=== PATIENT | female | born 1960 | race Caucasian/White ===

== ENCOUNTER 2023-03-02 17:46 | Outpatient (REF) | payer BC, SELFPAY ==
[2023-03-02 11:37] LABS: Iron 80 ug/dL (50-170); Total Iron Binding Capacity 351 ug/dL (250-450); Transferrin Sat 23 % (15-50)
[2023-03-02 11:39] LABS: Abs Immature Grans 0.04 10^3/uL (0.0-0.06); Absolute Basophil Count 0.08 10^3/uL (0.0-0.2); Absolute Eosinophil Count 0.26 10^3/uL (0.0-0.7); Absolute Monocyte Count 0.96 10^3/uL (0.1-0.8); Absolute Neutrophil Count 7.48 10^3/uL (1.2-6.7); Basophils % 0.7; Eosinophils % 2.3; HCT 42.4 % (36.0-46.0); HGB 13.8 g/dL (11.2-15.7); Immature Grans % 0.4; Lymphocytes % 20.7; MCH 29.1 pg (27.0-33.0); MCHC 32.5 % (32.0-36.0); MCV 90 fL (80-95); MPV 9.7 fL (8.0-11.0); Monocytes % 8.6; Neutrophils % 67.3; Platelet Count 355 10^3/uL (130-400); RBC 4.74 10^6/uL (3.93-5.22); RDW 11.9 % (11.7-14.6); RDW-SD 39.1 fL; WBC 11.12 10^3/uL (4.4-10.8)
[2023-03-02 12:04] LABS: Vitamin D 25 Total 58.7 ng/mL (30-100)
[2023-03-02 12:25] LABS: ALT 27 U/L (14-59); AST 16 U/L (15-37); Albumin 3.8 g/dL (3.4-5.0); Alkaline Phosphatase 64 U/L (46-116); Anion Gap 8.2 mmol/L (3-11); BUN 17 mg/dL (7-18); Bilirubin, Total 0.3 mg/dL (0.2-1.0); CO2 29.8 mmol/L (21.0-32.0); CREATININE 1.2 mg/dL (0.55-1.02); Calculated LDL 148 mg/dL (<100); Chloride 104 mmol/L (98-107); Cholesterol 253 mg/dL (<200); Estimated GFR 51.18 (mL/min/1.73m2); Ferritin 142 ng/mL (8-252); Glucose 98 mg/dL (74-106); HDL Cholesterol 79 mg/dL (40-60); Sodium 142 mmol/L (136-145); TSH (W/Ref FT4) 0.87 uIU/mL (0.36-3.74); Total Protein 7.2 g/dL (6.4-8.2); Triglyceride 131 mg/dL (<150); Vitamin B12 1466 pg/mL (193-986)
[2023-03-02 12:39] LABS: Hemoglobin A1C 5.7 % (<5.7)
[2023-03-04 09:29] LABS: CA 19-9 78 U/mL (<35)
== END 2023-03-02 17:47 | disposition home or self-care (01) ==
LOC: NCHCN 17:46
PROVIDERS: PCP Nurse Practitioner Family; Visit Provider Nurse Practitioner Family
DX: R97.8 Other abnormal tumor markers (principal); E03.9 Hypothyroidism, unspecified; R03.0 Elevated blood-pressure reading, without diagnosis of hypertension; E55.9 Vitamin D deficiency, unspecified; R73.03 Prediabetes; G30.9 Alzheimer's disease, unspecified; R71.8 Other abnormality of red blood cells; K21.9 Gastro-esophageal reflux disease without esophagitis
CPT/HCPCS: 80053; 80061; 82306; 82607; 82728; 83036; 83540; 83550; 83735; 84443; 85025; 86301

== ENCOUNTER 2023-03-05 18:43 | Outpatient (REF) | payer BC, SELFPAY ==
[2023-03-05 18:43] LABS: Bilirubin Negative (Negative); Blood Negative (Negative); Clarity Clear (Clear); Glucose Negative (Negative); Ketones Negative (Negative); Leukocyte Esterase Negative (Negative); Nitrite Negative (Negative); Specific Gravity >= 1.030 (1.005-1.025); Urobilinogen 0.2 mg/dL (Up to 0.2)
== END 2023-03-05 18:44 | disposition home or self-care (01) ==
LOC: NCHCN 18:43
PROVIDERS: PCP Nurse Practitioner Family; Visit Provider Nurse Practitioner Family
DX: R73.03 Prediabetes (principal); R71.8 Other abnormality of red blood cells; R82.998 Other abnormal findings in urine
CPT/HCPCS: 81003

== ENCOUNTER 2023-06-05 12:44 | Observation (INO) | payer BC, SELFPAY ==
[2023-06-05] VITALS (10 sets, daily range): BP systolic 118–134; BP diastolic 60–84; PULSE 72–100; RESP 20; TEMP 37; O2SAT 99–100
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
--- NOTE | 2023-06-05 13:15 | DI.CT_ITS ---
Exam(s) CT HEAD WO EXAM: CT HEAD WO CLINICAL HISTORY: Increased aggression. TECHNIQUE: Imaging Protocol: Axial computed tomography images with coronal and sagittal reformatted images were created and reviewed COMPARISON: No exams were available for comparison FINDINGS: There are no skull fractures. There is no fluid in the visualized paranasal sinuses. There is no evidence of intracranial hemorrhage, mass effect, or shift of midline structures. There are no extra-axial fluid collections. The ventricles are not enlarged or shifted and there is no blo od within the ventricular system nor within the basal cisterns. IMPRESSION: No acute intracranial findings on this noninfused CT scan of the brain. RADIATION DOSE DELIVERED: 595.72mGy.cm Total DLP DATA REPOSITORY: All CT scans at this facility are submitted to the National Radiology Data Registry (NRDR) Dose Index Registry (DIR) with the [employer] (ACR). RADIATION OPTIMIZATION: All CT scans at this facility use at least one of these dose optimization te chniques: automated exposure control; mA and/or kV adjustment per patient size (includes targeted exa ms where dose is matched to clinical indication); or iterative reconstruction.
[2023-06-05 13:38] LABS: Abs Immature Grans 0.02 10^3/uL (0.0-0.06); Absolute Basophil Count 0.07 10^3/uL (0.0-0.2); Absolute Eosinophil Count 0.27 10^3/uL (0.0-0.7); Absolute Lymphocyte Count 2.49 10^3/uL (1.2-3.4); Absolute Monocyte Count 0.79 10^3/uL (0.1-0.8); Absolute Neutrophil Count 4.67 10^3/uL (1.2-6.7); Basophils % 0.8; Eosinophils % 3.2; HCT 41.1 % (36.0-46.0); HGB 13.2 g/dL (11.2-15.7); Immature Grans % 0.2; MCH 28.2 pg (27.0-33.0); MCHC 32.1 % (32.0-36.0); MCV 88 fL (80-95); Monocytes % 9.5; Neutrophils % 56.3; Platelet Count 319 10^3/uL (130-400); RBC 4.68 10^6/uL (3.93-5.22); RDW 12.9 % (11.7-14.6); RDW-SD 41.3 fL; WBC 8.31 10^3/uL (4.4-10.8)
[2023-06-05 13:58] LABS: Salicylate < 2.8 mg/dL (<2.8)
[2023-06-05 14:01] LABS: Acetaminophen < 2 ug/mL (10-30)
[2023-06-05 14:05] LABS: Anion Gap 7.5 mmol/L (3-11); BUN 16 mg/dL (7-18); CO2 28.5 mmol/L (21.0-32.0); CREATININE 0.9 mg/dL (0.55-1.02); Calcium 10.5 mg/dL (8.5-10.1); Chloride 105 mmol/L (98-107); Estimated GFR 71.83 (mL/min/1.73m2); Glucose 104 mg/dL (74-106); Potassium 4.2 mmol/L (3.5-5.1); Sodium 141 mmol/L (136-145); TSH (W/Ref FT4) 0.01 uIU/mL (0.36-3.74)
[2023-06-05 14:09] LABS: ETHANOL BLOOD < 3.0 mg/dL (<10)
[2023-06-05 14:32] LABS: FREE T4 1.57 ng/dL (0.76-1.46)
[2023-06-05] MEDS: Normal Saline 500 ML IV (14:35)
[2023-06-05 18:08] LABS: Anion Gap 5.6 mmol/L (3-11); BUN 13 mg/dL (7-18); CO2 28.4 mmol/L (21.0-32.0); CREATININE 0.8 mg/dL (0.55-1.02); Calcium 9.3 mg/dL (8.5-10.1); Chloride 109 mmol/L (98-107); Estimated GFR 82.74 (mL/min/1.73m2); Glucose 101 mg/dL (74-106); Potassium 3.9 mmol/L (3.5-5.1); Sodium 143 mmol/L (136-145)
[2023-06-05 20:40] LABS: Bilirubin Negative (Negative); Blood Negative (Negative); Clarity Clear (Clear); Glucose Negative (Negative); Ketones Negative (Negative); Leukocyte Esterase Small (Negative); Nitrite Negative (Negative); Specific Gravity 1.015 (1.005-1.025); Urobilinogen 0.2 mg/dL (Up to 0.2); pH 7.5 (5-8)
[2023-06-05 20:52] LABS: *AMPHETAMINES SCREEN URINE Negative (Negative); *BARBITURATES SCREEN URINE Negative (Negative); *BENZODIAZEPINES SCREEN URINE Negative (Negative); Cannabinoids THC Negative (Negative); Cocaine Screen,Urine Negative (Negative); METHADONE URINE SCREEN Negative (Negative); OPIATES URINE SCREEN Negative (Negative); Tricyclic Antidepressants Negative (Negative)
[2023-06-05 20:56] LABS: Epithelial Cells Rare HPF (Negative); RBC 0-2 HPF (0-2)
[2023-06-05 20:57] LABS: Bacteria Negative HPF (Negative); C & S Indicated? No; Crystals Rare Calcium Oxalate HPF (Negative); Mucus Negative (Negative); Other Cells Rare Transitional (Negative)
--- NOTE | 2023-06-05 23:22 | W.PM.HP.N ---
Date of service: 06/05/23 Time of Service: 23:22 Assessment and Plan Assessment and plan (1) Alzheimer's dementia with behavioral disturbance: Status: Acute Assessment and plan: Behavior stable at the moment. Will continue donepezil and bupropion overnight. Continue supervision to ensure safety and ask case management to evaluate disposition options in the morning. See medical comorbidities below. (2) Hypercalcemia: Status: Acute Assessment and plan: Resolved after moderate IV fluids. Likely some element of volume depletion, holding vitamin D and ordered phosphorus and intact PTH. (3) Hypothyroidism: Assessment and plan: Labs suggest over replacement. Holding levothyroxine for now. (4) Pyuria: Status: Acute Assessment and plan: Minimal symptoms except for some increased frequency. Has received fosfomycin and will await cultures but hold further antibiotics. History of Present Illness History of Present Illness Chief Complaint: Abnormal behavior Narrative: This 63-year-old female with advanced dementia was sent in from her assisted living facility because of increasingly aggressive behavior. Noted that she had a neurology appointment 2 days ago when they refused to see her because she was uncooperative. She currently has no complaints except for slight increase in urinary frequency today. She denies fever, chills, dysuria, back pain. She reports reasonable oral intake and no nausea or vomiting, no change in her bowel habits. No unexplained weight changes. Reportedly her caregivers are unable to provide care either at home or at her assisted living facility and she is likely to need longer term placement. Review of Systems All systems reviewed & are unremarkable except as noted in HPI and below PFSH All Active Problems (Updated 06/05/23 @ 23:29 by Scott Galaviz MD) Pyuria (Acute) Alzheimer's dementia with behavioral disturbance (Acute) Hypercalcemia (Acute) Elevated serum free T4 level (Acute) Medical History Alzheimer's dementia CKD (chronic kidney disease), stage III Elevated blood pressure reading GERD (gastroesophageal reflux disease) History of depression History of prediabetes Hyperlipidemia Hypothyroidism Leukocytosis Microcytosis Other abnormal tumor markers Sleep apnea Urinary incontinence, mixed Vitamin D deficiency Surgical History H/O total hysterectomy H/O tubal ligation History of cholecystectomy Hx of removal of cyst Social History Smoking/Tobacco Use Status: Never Smoking risk assessment performed?: Yes Alcohol Intake: current Do you feel safe at home: Yes Do you feel safe in your relationship?: Yes Meds Allergies and Home Medications Allergies Allergy/AdvReac Type Severity Reaction Status Date / Time sulfadiazine Allergy Severe Verified 06/05/23 14:52 doxycycline Allergy Intermediate Verified 03/11/23 14:20 pregabalin [From Lyrica] Allergy Intermediate Verified 06/05/23 14:52 Home Medications Medication Instructions Recorded Confirmed Type bupropion HCl 300 mg 24 hr tablet, 300 mg PO QAM 03/11/23 06/05/23 History extended release (Wellbutrin XL) bupropion HCl 75 mg tablet 75 mg PO DAILY 03/11/23 06/05/23 History cholecalciferol (vitamin D3) 25 25 mcg PO DAILY 03/11/23 06/05/23 History mcg (1,000 unit) capsule coenzyme Q10 100 mg capsule (Co 100 mg PO DAILY 03/11/23 History Q-10) cyanocobalamin (vitamin B-12) 1,000 mcg PO DAILY 03/11/23 06/05/23 History 1,000 mcg capsule donepezil 5 mg tablet (Aricept) 5 mg PO QHS 03/11/23 06/05/23 History famotidine 20 mg tablet 20 mg PO DAILY 03/11/23 History levothyroxine 125 mcg tablet 125 mcg PO DAILY 03/11/23 06/05/23 History (Synthroid) acetaminophen 325 mg tablet 650 mg PO ONCE PRN 06/03/23 06/03/23 History (Tylenol) clozapine 50 mg tablet 50 mg PO QHS 06/03/23 06/03/23 History duloxetine 60 mg capsule,delayed 120 mg PO DAILY 06/03/23 06/03/23 History release magnesium 250 mg tablet 250 mg PO DAILY 06/03/23 06/03/23 History nicotine 21 mg/24 hr daily 1 patch transdermal DAILY 06/03/23 06/03/23 History transdermal patch omega 4-ulv-isl-fish oil 60 mg-90 1 cap PO DAILY 06/03/23 06/03/23 History mg-500 mg capsule (Fish Oil) simvastatin 20 mg tablet 20 mg PO DAILY 06/03/23 06/03/23 History tamsulosin 0.4 mg capsule 0.4 mg PO QHS 06/03/23 06/03/23 History umeclidinium 62.5 mcg/actuation 1 inh inhalation DAILY 06/03/23 06/03/23 History blister powder for inhalation (Incruse Ellipta) Exam Narrative Exam Narrative: General she appears comfortable and is in no acute distress HEENT pupils are equal round and reactive to light, no conjunctival pallor, no scleral icterus posterior pharynx clear with no erythema or exudate Neck supple, no lymphadenopathy or thyromegaly, carotid pulses normal and symmetric with no bruits Chest normal breath sounds with no crackles or wheezes Heart rhythm is regular, no gallop, no JVD, no murmur Abdomen soft, nontender, bowel sounds normal, no organomegaly or masses Skin no rash, normal turgor Joints no inflammatory changes noted Neurologic no tremor, hyperreflexic both upper extremities with no focal motor or sensory deficits Results Imaging Additional studies: Noted that her head CT has no acute pathology and she had mild hypercalcemia with normal renal function and trace pyuria. Labs 06/05/23 13:30 06/05/23 17:50 Labs: Laboratory Results - last 24 hr 06/05/23 06/05/23 06/05/23 13:30 13:30 13:30 WBC 8.31 RBC 4.68 Hgb 13.2 Hct 41.1 MCV 88 MCH 28.2 MCHC 32.1 RDW 12.9 Plt Count 319 MPV 10.0 Immature Gran % 0.2 Neutrophils % 56.3 Lymphocytes % 30.0 Monocytes % 9.5 Eosinophils % 3.2 Basophils % 0.8 Nucleated RBC % 0.0 Absolute Neutrophils 4.67 Absolute Lymphocytes 2.49 Absolute Monocytes 0.79 Absolute Eosinophils 0.27 Absolute Basophils 0.07 Sodium 141 Potassium 4.2 Chloride 105 Carbon Dioxide 28.5 Anion Gap 7.5 BUN 16 Creatinine 0.9 Est GFR (CKD-EPI 2020) 71.83 Glucose 104 Calcium 10.5 H TSH 0.01 L Free T4 1.57 H Urine Color Urine Clarity Urine pH Ur Specific [place] Urine Protein Urine Ketones Urine Blood Urine Nitrite Urine Bilirubin Urine Urobilinogen Ur Leukocyte Esterase Urine RBC Urine WBC Ur Epithelial Cells Urine Crystals Urine Bacteria Urine Mucus Urine Other Ur Culture Indicated? Urine Glucose Salicylates < 2.8 Urine Opiates Screen Urine Methadone Screen Acetaminophen < 2 Ur Barbiturates Screen Ur Tricyclics Screen Ur Amphetamines Screen U Benzodiazepines Scrn Urine Cocaine Screen Ur THC Screen Ethyl Alcohol < 3.0 06/05/23 06/05/23 06/05/23 17:50 20:33 20:33 WBC RBC Hgb Hct MCV MCH MCHC RDW Plt Count MPV Immature Gran % Neutrophils % Lymphocytes % Monocytes % Eosinophils % Basophils % Nucleated RBC % Absolute Neutrophils Absolute Lymphocytes Absolute Monocytes Absolute Eosinophils Absolute Basophils Sodium 143 Potassium 3.9 Chloride 109 H Carbon Dioxide 28.4 Anion Gap 5.6 BUN 13 Creatinine 0.8 Est GFR (CKD-EPI 2020) 82.74 Glucose 101 Calcium 9.3 TSH Free T4 Urine Color Yellow Urine Clarity Clear Urine pH 7.5 Ur Specific [place] 1.015 Urine Protein Negative Urine Ketones Negative Urine Blood Negative Urine Nitrite Negative Urine Bilirubin Negative Urine Urobilinogen 0.2 Ur Leukocyte Esterase Small H Urine RBC 0-2 Urine WBC 3-5 Ur Epithelial Cells Rare Urine Crystals Rare Calcium Oxalate Urine Bacteria Negative Urine Mucus Negative Urine Other Rare Transitional Ur Culture Indicated? No Urine Glucose Negative Salicylates Urine Opiates Screen Negative Urine Methadone Screen Negative Acetaminophen Ur Barbiturates Screen Negative Ur Tricyclics Screen Negative Ur Amphetamines Screen Negative U Benzodiazepines Scrn Negative Urine Cocaine Screen Negative Ur THC Screen Negative Ethyl Alcohol Last Vital Signs Temp 37 C 06/05/23 13:00 Pulse 72 06/05/23 15:01 Resp 20 06/05/23 13:00 BP 128/61 06/05/23 15:01 Pulse Ox 100 06/05/23 15:01 Time Spent Time spent with Patient: <40 minutes Time was spent: preparing to see the patient(eg.review tests), obtaining and/or reviewing separately otained hiistory, ordering medications,tests, procedures, referring, communicating with other health manager home healthcare, indepentently interpreting results, counseling the patient and care coordination
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
[2023-06-06] MEDS: Donepezil 5 MG TAB PO (01:26)
[2023-06-06 01:50] VITALS: BP 139/81; PULSE 82; RESP 16; TEMP 36.6; O2SAT 100
[2023-06-06] MEDS: Normal Saline 1,000 ML 75 ML IV (01:51)
[2023-06-06 07:25] LABS: Anion Gap 7.6 mmol/L (3-11); BUN 11 mg/dL (7-18); CO2 27.4 mmol/L (21.0-32.0); CREATININE 0.8 mg/dL (0.55-1.02); Calcium 9.5 mg/dL (8.5-10.1); Chloride 109 mmol/L (98-107); Estimated GFR 82.74 (mL/min/1.73m2); Glucose 90 mg/dL (74-106); Magnesium 1.9 mg/dL (1.8-2.4); PHOSPHORUS 3.2 mg/dL (2.6-4.7); Potassium 4.2 mmol/L (3.5-5.1); Sodium 144 mmol/L (136-145)
--- NOTE | 2023-06-06 08:43 | INITIAL_ITS ---
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 CURRENT FUNCTIONAL STATUS:: Pleasant in interaction, oriented to self. ADVANCE DIRECTIVES:: Willian, son as [employer] Has patient been provided with info about the portal/API?: No Did the patient sign up for the portal?: No INSURANCE COVERAGE / FINANCIAL ISSUES:: BC/BS out of state. Conor reports LTM was applied for and denied as Aida's monthly income covered her previous expenses at the [facility]. PRIMARY CARE PHYSICIAN:: Wanda Orosco POTENTIAL DISCHARGE NEEDS:: LTM, Placement PATIENT/FAMILY EDUCATION NEEDS:: Insurance limitations, self pay status, swing bed status, review of community based supports ANTICIPATED BARRIERS TO DISCHARGE:: Safe disposition; [place] has refused Aida's return home. TRANSPORTATION:: To be determined by disposition. PLAN:: Aida will remain at [facility] until LTM and placement can be coordinated. CM continues to follow. PFSH All Active Problems (Updated 06/17/23 @ 14:39 by Edel Gan MD) Anxiety (Chronic) Dementia with behavioral disturbance (Acute) Frontal lobe dementia (Acute) Discharge planning issues (Acute) UTI (urinary tract infection) (Acute) Palliative care encounter (Acute) Alzheimer's dementia with behavioral disturbance (Chronic) Elevated serum free T4 level (Acute) Medical History Alzheimer's dementia CKD (chronic kidney disease), stage III Elevated blood pressure reading GERD (gastroesophageal reflux disease) History of depression History of prediabetes Hyperlipidemia Hypothyroidism Leukocytosis Microcytosis Other abnormal tumor markers Sleep apnea Urinary incontinence, mixed Vitamin D deficiency Surgical History H/O total hysterectomy H/O tubal ligation History of cholecystectomy Hx of removal of cyst Social History Smoking/Tobacco Use Status: Never Smoking risk assessment performed?: Yes Alcohol Intake: current Housing: other Do you feel safe at home: Yes Do you feel safe in your relationship?: Yes
[2023-06-06] MEDS: buPROPion 75 MG TAB PO (11:00)
[2023-06-06] MEDS: buPROPion-XL 150 MG TABCR 300 MG PO (11:00)
[2023-06-06] MEDS: Simvastatin 20 MG TAB PO (11:01)
[2023-06-06] MEDS: Cyanocobalamin 500 MCG TAB 1000 MCG PO (11:01)
[2023-06-06 11:08] VITALS: BP 128/78; PULSE 69; RESP 16; TEMP 36.3; O2SAT 100
--- NOTE | 2023-06-06 12:01 | IN_ITS ---
PT Notes Visit Reasons: UTI, hypercalcemia Physical Therapy Inpatient Initial Evaluation Date: 06/06/23 Referring Doctor: Dale Edwards MD PT Orders: PT CONSULT: Urgent - Fall safety assessment Precautions: Fall. Standard. Dementia. Patient Profile/Admitting Diagnosis: Aida is 63 yo female that presented to the ER on 06/05/23, brought in by police for mental health evaluation. Reports of increasing agitation and combative behavior. She was residing at the [facility], unclear if still the case. Patient does have dementia. Found to have hypercalcemia, elevated serum free T4 level, and UTI. PMHX: See EMR Social History/Home Situation: Dementia/Alzheimer's recently living at [facility]. Ambulating without an AD it seems, but other baseline status not known. Equipment Owned/DME: Unknown Subjective: Cleared by nursing to see patient and patient is agreeable to PT. Nurse sitter present in room. Patient is sitting up in chair at time of consult and connected to IV. Objective: General Observation: Patient appears calm and alert. Poor ability to follow single step directions. Mental Status: Oriented to self Pain: None reported ROM: Right Upper Extremity: Within functional limits. Left Upper Extremity: Within functional limits. Right Lower Extremity: Within functional limits. Left Lower Extremity: Within functional limits. Strength: Right Upper Extremity: Grossly 4/5. Mercury Cracking Tester moderate. Left Upper Extremity: Grossly 4/5. Mercury Cracking Tester moderate. Right Lower Extremity: Hip flexors 4/5. Knee flexors 4/5. Knee extensors 5/5. Ankle dorsiflexors 4/5. Ankle plantarflexors 4/5. Left Lower Extremity: Hip flexors 4/5. Knee flexors 4/5. Knee extensors 5/5. Ankle dorsiflexors 4/5. Ankle plantarflexors 4/5. Sensation: Too confused for any appropriate assessment Bed Mobility/Transfers: Rolling: Not assessed Supine to sit: Not assessed Sit to supine: Not assessed Sit to stand: CGA Stand to sit: CGA Gait: Ambulated 85 feet (half with FWW, half without AD). CGA, needs correction of walker with use to keep in correct direction. Seems better without an assistive device, but supervision recommended. Stairs: Not assessed Balance: Static Sitting: Good Dynamic Sitting: Fair Static Standing: Fair Dynamic Standing: Poor Special Tests: Mobility Limitations Standardized Measure [facility]-PAC 6 clicks Basic Mobility Inpatient Short Form: Raw Score: 12 CMS Score: 69% Informed Consent/Education: Patient instructed in purpose of PT consult and plan of care. Assessment: Patient is calm and pleasant at time of consult sitting up in chair with sitter in room. She does have difficulty following single step directions and responding for strength testing. She ambulates better without an assistive device with reduced path deviation and improved speed. Patient has good basic mobility, but weakness in upper and lower extremity strength. Not safe to be independent secondary to Alzheimer's. Patient presents with clinical signs and symptoms consistent with current/admitting diagnoses that have resulted to mobility limitations, gait instability, generalized weakness, and impairment of motor control as demonstrated by the following impairment level findings: 1. Decreased strength to upper extremity major muscle groups 2. Decreased strength to lower extremity major muscle groups 3. Impaired sitting/standing balance 4. Impaired activity tolerance 5. Increased need for supervision for safe mobility Impairments are contributing to the following functional limitations: 1. Increased dependence with transfers 2. Inability to safely ambulate without supervision 3. Increase completion time for mobility ADL performance 4. Increased fall risk 5. Inability to negotiate steps alone safely Patient is assessed as a High complexity based on the following: History: 63 year old female with impairment level findings, functional limitations, and past medical history as indicated above Examination: Demonstrable impairment in strength, balance, and mobility level with underlying impairments and functional limitations as documented above Presentation: Evolving Decision Making: High complexity Goals: Goals x1 week 1. Supine-Sit: independent 2. Sit-Supine: independent 3. Sit-Stand: independent 4. Stand-Sit: independent 5. Bed-Chair: independent 6. Chair-Bed: independent 7. Independent gait on level surface with use of least restrictive device for at least 300 feet without report of pain nor dyspnea 8. Good static and dynamic standing balance/tolerance Plan of Care/Treatment Plan: 1-2x/day, 7 days/week x1 week. Plan of care has been reviewed with the DIRECTOR OF PHYSICAL SECURITY providing the service under Physical Therapy direction. Initiate Physical Therapy intervention for strengthening, bed mobility, transfers, gait, stairs, balance training, and use of assistive device. Discharge Plan DISCHARGE RECOMMENDATIONS: [facility] secondary to Alzheimer's and need for improved strengthening TREATMENT CODE/TIME: 11:35-11:57 (22 minutes), [id number] Thank you for the opportunity to participate in the care of this patient. Lacy Newell, PT, DPT, OCS [facility], [place]
--- NOTE | 2023-06-06 13:22 | DSE_ITS ---
Date of service: 06/06/23 Time of Service: 13:22 DS: Diagnosis Discharge Diagnosis (1) Alzheimer's dementia with behavioral disturbance: Status: Chronic Asessment and Plan: continue Wellbutrin, Aricept, Duloxetine; patient has had no behaviorial issues since admission last night. She will work w/ P.T. to try to improve her gait/balance and general strength but I anticipate that her cognitive needs will necessitate her to be placed in SNF once she has plateaued for P.T. Patient now entered into swing bed level I for P.T. Placement will be an issue as [facility] reportedly has refused to take her back. Her cognitive impairment makes it unsafe for her to live independently or even in assisted living. (2) Hypercalcemia: Status: Resolved Asessment and Plan: resolved after iv fluids. PTH is pending (3) Hypothyroidism: Asessment and Plan: low TSH and elevated FT4; will hold her synthroid for 3 days then reduce her dose to 100 mcg from 125 mcg and recheck her levels in 6 weeks. (4) Pyuria: Status: Acute Asessment and Plan: no symptoms of dysuria, fever or inability to void. Her UA was unremarkable. u rine culture is pending. she was treated w/ Fosfomycin and should not need further treatment. Discharge Plan Disposition Patient Disposition: Swing Bed(Skilled,SB1) Condition: Stable Discharge Details Reason For Visit: UTI, Hypercalcemia Admit Date/Time: 06/05/23 23:19 Admit Provider: Dale Edwards Attending Provider: Dale Edwards Primary Care Provider: Wanda Orosco Hospital Course Hospital Course: Patient was admitted through the ED from [facility] d/t worsening dementia causing generalized weakness, deconditioning and unsafe conditions for her to continue to live in assisted living d/t increased combativeness, and agitation. Patient was evaluated in the ED and given iv fluids for possible dehydration and was given Fosfomycin for possible UTI. However her UA only showed small amount of leukocyte esterase and only 3 to 5 WBC/HPF and no bacteria and negative for nitrites. She was no febrile and had no leukocytosis on her CBC. Labs were fairly unremarkable other than mildly elevated calcium of 10.5 which corrected to 9.5 after iv hydration and TSH of 0.01 w/ elevated FT4 of 1.57 (patient is on levothyroxine [address] scan of her head showed no acute intracranial process. Patient was admitted on observation status as [facility] refused to take her back d/t her behaviorial issues. Patient has had a sitter overnight and has had no observed behaviorial issues other than she tried to leave her room but was easily redirected and has been cooperative and calm. Patient was evaluated by physical therapy this morning and was found to have generalized weakness and gait instability and was recommended to have continued P.T. in a SNF. Patient will be discharged from acute observation status in the hospital to swing bed level I while she receives P.T. here at [facility]. Once she has regained adequate strength and balance, she may be dc to a SNF, hopefully one that is specialized to accomodate Alzheimer's patients as she needs further care to stabilize her cognitive functions. Home Meds and New Rx's Prescriptions: Continued acetaminophen [Tylenol] 325 mg tablet 650 mg PO ONCE PRN duloxetine 60 mg capsule,delayed release(DR/EC) 120 mg PO DAILY omega [id number] oil [Fish Oil] 60-90-500 mg capsule 1 cap PO DAILY Incruse Ellipta 62.5 mcg/actuation blister with device 1 inh inhalation DAILY magnesium 250 mg tablet 250 mg PO DAILY nicotine 21 mg/24 hr patch 24 hour 1 patch transdermal DAILY simvastatin 20 mg tablet 20 mg PO DAILY clozapine 50 mg tablet 50 mg PO QHS tamsulosin 0.4 mg capsule 0.4 mg PO QHS famotidine 20 mg tablet 20 mg PO DAILY donepezil [Aricept] 5 mg tablet 5 mg PO QHS bupropion HCl 75 mg tablet 75 mg PO DAILY bupropion HCl [Wellbutrin XL] 300 mg tablet extended release 24 hr 300 mg PO QAM coenzyme Q10 [Co Q-10] 100 mg capsule 100 mg PO DAILY cyanocobalamin (vitamin B-12) 1,000 mcg capsule 1,000 mcg PO DAILY cholecalciferol (vitamin D3) 25 mcg (1,000 unit) capsule 25 mcg PO DAILY Held levothyroxine [Synthroid] 125 mcg tablet 125 mcg PO DAILY Hold Instructions: Resume on 06/08/23. reduce dose to 100 mcg daily thereafter Discharge Instructions Activity:: Activity as Tolerated Equipment/Supplies:: No Equipment Needed Diet:: Normal Diet Discharge Orders Discharge Orders: Discharge Order (Routine); Ordered 06/06/23 Ordered By: Dale Edwards DS: Summary Time Spent with Patient providing and/or coordinating discharge services: Greater than 30 minutes Status at Discharge Functional status at discharge: uses cane/walker Overall status at discharge: patient is not back to baseline Mental Status: other (demented) Speech and Movement: speech and movement normal Mood: other (demented) Affect: normal affect Exam Narrative Exam Narrative: Aida is sitting up in her chair she just came back from having a shower. She is alert she is oriented only to person not to circumstance time or place. HEENT is unremarkable. Teeth are in good repair. Oropharynx noninjected no exudate. Neck supple nontender. No JVD normal carotid pulses Lungs are clear to auscultation Heart is regular rate and rhythm without appreciable murmur rub or gallop Abdomen soft nondistended nontender normal bowel sounds Extremities without peripheral cyanosis or edema. Neuro she has no facial asymmetry no dysarthric speech cognition she is aware of her surroundings she is unable to tell me where she is at nor is she able to tell me why she is here or how she got here. She does recognize that she has memory problems and gets frustrated when trying to explain herself. Pupils equally round reactive extraocular motions intact no focal cranial nerve deficits. No focal motor or sensory deficits although she does have generalized weakness but no paraparesis Psych Mental Status: other (demented) Speech and Movement: speech and movement normal Mood: other (demented) Affect: normal affect DS: Data Vitals/I&O Vitals and I&O: Vital Signs Temperature 36.3 C L 06/06/23 11:08 Temperature Source Tympanic 06/06/23 11:08 Pulse 69 06/06/23 11:08 Pulse Rhythm Regular 06/06/23 01:50 Respiratory Rate 16 06/06/23 11:08 Respiratory Effort Normal 06/06/23 01:50 Respiratory Depth Normal 06/06/23 01:50 Respiratory Pattern Normal 06/06/23 01:50 Blood Pressure 128/78 06/06/23 11:08 Blood Pressure Mean 79 06/05/23 15:01 Blood Pressure Position Sitting 06/05/23 13:00 Pulse Oximetry 100 06/06/23 11:08 Oxygen Delivery Method Room Air 06/06/23 11:08 Oxygen Flow Rate 0 06/06/23 11:08 Pain Level 0 06/06/23 01:50 Intake & Output 06/05/23 06/06/23 06/06/23 23:59 11:59 23:59 Intake Total 500 / 500 562.5 / 562.5 Output Total 100 / 100 Balance 500 / 500 -100 / 462.5 562.5 / 462.5 Weight 65.771 kg 48.3 kg Intake: IV 500 / 500 192.5 / 192.5 Oral 370 / 370 Output: Urine 100 / 100 Other: Urine Color Yellow Urine Appearance Clear Comment pT incontinent in brief at time of am care pT voided / sat back beyond hat Voiding Methods Diaper Toilet Incontinent Data Completed and Pending Labs on day of discharge: Labs from last 24 hours 06/06/23 06/05/23 06/05/23 06:22 20:33 20:33 WBC RBC Hgb Hct MCV MCH MCHC RDW Plt Count MPV Immature Gran % Neutrophils % Lymphocytes % Monocytes % Eosinophils % Basophils % Nucleated RBC % Absolute Neutrophils Absolute Lymphocytes Absolute Monocytes Absolute Eosinophils Absolute Basophils Sodium 144 Potassium 4.2 Chloride 109 H Carbon Dioxide 27.4 Anion Gap 7.6 BUN 11 Creatinine 0.8 Est GFR (CKD-EPI 2020) 82.74 Glucose 90 Calcium 9.5 Phosphorus 3.2 Magnesium 1.9 TSH Free T4 PTH Intact Urine Color Yellow Urine Clarity Clear Urine pH 7.5 Ur Specific [place] 1.015 Urine Protein Negative Urine Ketones Negative Urine Blood Negative Urine Nitrite Negative Urine Bilirubin Negative Urine Urobilinogen 0.2 Ur Leukocyte Esterase Small H Urine RBC 0-2 Urine WBC 3-5 Ur Epithelial Cells Rare Urine Crystals Rare Calcium Oxalate Urine Bacteria Negative Urine Mucus Negative Urine Other Rare Transitional Ur Culture Indicated? No Urine Glucose Negative Salicylates Urine Opiates Screen Negative Urine Methadone Screen Negative Acetaminophen Ur Barbiturates Screen Negative Ur Tricyclics Screen Negative Ur Amphetamines Screen Negative U Benzodiazepines Scrn Negative Urine Cocaine Screen Negative Ur THC Screen Negative Ethyl Alcohol 06/05/23 06/05/23 06/05/23 17:50 17:50 13:30 WBC 8.31 RBC 4.68 Hgb 13.2 Hct 41.1 MCV 88 MCH 28.2 MCHC 32.1 RDW 12.9 Plt Count 319 MPV 10.0 Immature Gran % 0.2 Neutrophils % 56.3 Lymphocytes % 30.0 Monocytes % 9.5 Eosinophils % 3.2 Basophils % 0.8 Nucleated RBC % 0.0 Absolute Neutrophils 4.67 Absolute Lymphocytes 2.49 Absolute Monocytes 0.79 Absolute Eosinophils 0.27 Absolute Basophils 0.07 Sodium 143 Potassium 3.9 Chloride 109 H Carbon Dioxide 28.4 Anion Gap 5.6 BUN 13 Creatinine 0.8 Est GFR (CKD-EPI 2020) 82.74 Glucose 101 Calcium 9.3 Phosphorus Magnesium TSH Free T4 PTH Intact Pending Urine Color Urine Clarity Urine pH Ur Specific [place] Urine Protein Urine Ketones Urine Blood Urine Nitrite Urine Bilirubin Urine Urobilinogen Ur Leukocyte Esterase Urine RBC Urine WBC Ur Epithelial Cells Urine Crystals Urine Bacteria Urine Mucus Urine Other Ur Culture Indicated? Urine Glucose Salicylates Urine Opiates Screen Urine Methadone Screen Acetaminophen Ur Barbiturates Screen Ur Tricyclics Screen Ur Amphetamines Screen U Benzodiazepines Scrn Urine Cocaine Screen Ur THC Screen Ethyl Alcohol 06/05/23 06/05/23 13:30 13:30 WBC RBC Hgb Hct MCV MCH MCHC RDW Plt Count MPV Immature Gran % Neutrophils % Lymphocytes % Monocytes % Eosinophils % Basophils % Nucleated RBC % Absolute Neutrophils Absolute Lymphocytes Absolute Monocytes Absolute Eosinophils Absolute Basophils Sodium 141 Potassium 4.2 Chloride 105 Carbon Dioxide 28.5 Anion Gap 7.5 BUN 16 Creatinine 0.9 Est GFR (CKD-EPI 2020) 71.83 Glucose 104 Calcium 10.5 H Phosphorus Magnesium TSH 0.01 L Free T4 1.57 H PTH Intact Urine Color Urine Clarity Urine pH Ur Specific [place] Urine Protein Urine Ketones Urine Blood Urine Nitrite Urine Bilirubin Urine Urobilinogen Ur Leukocyte Esterase Urine RBC Urine WBC Ur Epithelial Cells Urine Crystals Urine Bacteria Urine Mucus Urine Other Ur Culture Indicated? Urine Glucose Salicylates < 2.8 Urine Opiates Screen Urine Methadone Screen Acetaminophen < 2 Ur Barbiturates Screen Ur Tricyclics Screen Ur Amphetamines Screen U Benzodiazepines Scrn Urine Cocaine Screen Ur THC Screen Ethyl Alcohol < 3.0 PFSH All Active Problems (Updated 06/06/23 @ 13:25 by Dale Edwards MD) UTI (urinary tract infection) (Acute) Pyuria (Acute) Alzheimer's dementia with behavioral disturbance (Chronic) Elevated serum free T4 level (Acute) Medical History Alzheimer's dementia CKD (chronic kidney disease), stage III Elevated blood pressure reading GERD (gastroesophageal reflux disease) History of depression History of prediabetes Hyperlipidemia Hypothyroidism Leukocytosis Microcytosis Other abnormal tumor markers Sleep apnea Urinary incontinence, mixed Vitamin D deficiency Surgical History H/O total hysterectomy H/O tubal ligation History of cholecystectomy Hx of removal of cyst Social History Smoking/Tobacco Use Status: Never Smoking risk assessment performed?: Yes Alcohol Intake: current Housing: other Do you feel safe at home: Yes Do you feel safe in your relationship?: Yes Time Spent with Patient Time Spent with Patient: <45 minutes Time was spent: preparing to see the patient(eg.review tests), ordering medications,tests, procedures, referring, communicating with other health career coordinator (wrapper caser and supervisor photostat), indepentently interpreting results and care coordination
[2023-06-06 15:25] VITALS: BP 126/69; PULSE 72; RESP 16; TEMP 37.1; O2SAT 99
[2023-06-08 09:46] LABS: Parathyroid Hormone,Intact 56 pg/mL (19-88)
== END 2023-06-06 15:47 | disposition swing bed (61) ==
LOC: ER 23:57 → MS 06-06 01:22
PROVIDERS: Emergency Medicine; Hospitalist; Admitting Provider Internal Medicine; Emergency Provider Student in an Organized Health Care Education/Training Program; PCP Nurse Practitioner Family; Visit Provider Internal Medicine
DX: G30.9 Alzheimer's disease, unspecified (principal); F02.811 Dementia in other diseases classified elsewhere, unspecified severity, with agitation; E83.52 Hypercalcemia; E03.9 Hypothyroidism, unspecified; R82.81 Pyuria; N18.30 Chronic kidney disease, stage 3 unspecified; K21.9 Gastro-esophageal reflux disease without esophagitis; F32.A Depression, unspecified; R73.03 Prediabetes; G47.30 Sleep apnea, unspecified; N39.46 Mixed incontinence; Z79.899 Other long term (current) drug therapy; D72.829 Elevated white blood cell count, unspecified
CPT/HCPCS: 36415; 80048; 80307; 99285; 70450; 80320; 80329; 81003; 81015; 83735; 83970; 84100; 84439; 84443; 85025; 99222; 99239; G0378

== ENCOUNTER 2023-06-06 15:31 | Inpatient (IN) | payer MEDICARE, BC, MEDICAID, SELFPAY ==
--- NOTE | 2023-06-06 13:32 | W.PM.HP.N ---
Date of service: 06/06/23 Time of Service: 13:32 Assessment and Plan Assessment and plan (1) Alzheimer's dementia with behavioral disturbance: Status: Chronic Assessment and plan: continue her Aricept, duloxetine, and Wellbutrin. CM to assist family (son lives out of state) in finding a Alzheimers SNF. Patient does not need constant sitter but does require close monitoring by nursing as she tends to wander. Use of bed and chair alarms strongly advised. (2) Elevated serum free T4 level: Status: Acute Assessment and plan: probably over replacement of her levothyroxine. willl hold her 125 mcg dose for a few days then restart at lower level of 100 mcg; recheck levels in 6 weeks. (3) Hypothyroidism: Assessment and plan: as above (4) Hypercalcemia: Status: Resolved Assessment and plan: this was corrected w/ iv fluids last night. As she has hx of low vitamin D and is on replacement, I will check her vitamin D levels, she may be getting over replaced which will lead to hypercalcemia. PTH level is pending. (5) Vitamin D deficiency: Assessment and plan: will check levels. History of Present Illness History of Present Illness Chief Complaint: dementia Narrative: 63 yr old female w/ advanced dementia, GERD, HLD, hypothyroidism on replacement who resides at [facility] but was sent in to the ED last night for evaluation d/t increased agitation, combativeness. Patient reportedly was disturbing staff and other residents w/ her behavior. Workup in the ED revealed her to be mildly hypercalcemic (Calcium level of 10.5), rest of her electrolytes and BUN and creatinine were normal. UA w/ a few WBC but no bacteria. She was given iv fluids, a dose of fosfomycin for presumptive UTI and admitted to the hospital on observation status. She has had no behaviorial issues since she was admitted last . Unfortunately [facility] refuses to allow her to return. Physical therapy was consulted out of concern for general weakness, increased risk for falls. She was found to have no focal paresis, but has general weakness, cognitive deficits which impair her judgement necessitating frequent cueing and close supervision during walks. She was deemed to benefit from continued P.T. 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 Patient is now admitted to swing bed level I for continued therapy. Once she has reached a plateau of the limits of P.T. benefit then she will need SNF as she is deemed too demented to live wu. Review of Systems Unobtainable due to mental condition PFSH All Active Problems UTI (urinary tract infection) (Acute) Pyuria (Acute) Alzheimer's dementia with behavioral disturbance (Chronic) Elevated serum free T4 level (Acute) Medical History Alzheimer's dementia CKD (chronic kidney disease), stage III Elevated blood pressure reading GERD (gastroesophageal reflux disease) History of depression History of prediabetes Hyperlipidemia Hypothyroidism Leukocytosis Microcytosis Other abnormal tumor markers Sleep apnea Urinary incontinence, mixed Vitamin D deficiency Surgical History H/O total hysterectomy H/O tubal ligation History of cholecystectomy Hx of removal of cyst Social History Smoking/Tobacco Use Status: Never Smoking risk assessment performed?: Yes Alcohol Intake: current Housing: other Do you feel safe at home: Yes Do you feel safe in your relationship?: Yes Meds Allergies and Home Medications Allergies Allergy/AdvReac Type Severity Reaction Status Date / Time sulfadiazine Allergy Severe Verified 06/05/23 14:52 doxycycline Allergy Intermediate Verified 03/11/23 14:20 pregabalin [From Lyrica] Allergy Intermediate Verified 06/05/23 14:52 Home Medications Medication Instructions Recorded Confirmed Type bupropion HCl 300 mg 24 hr tablet, 300 mg PO QAM 03/11/23 06/05/23 History extended release (Wellbutrin XL) bupropion HCl 75 mg tablet 75 mg PO DAILY 03/11/23 06/05/23 History cholecalciferol (vitamin D3) 25 25 mcg PO DAILY 03/11/23 06/05/23 History mcg (1,000 unit) capsule coenzyme Q10 100 mg capsule (Co 100 mg PO DAILY 03/11/23 History Q-10) cyanocobalamin (vitamin B-12) 1,000 mcg PO DAILY 03/11/23 06/05/23 History 1,000 mcg capsule donepezil 5 mg tablet (Aricept) 5 mg PO QHS 03/11/23 06/06/23 History famotidine 20 mg tablet 20 mg PO DAILY 03/11/23 History levothyroxine 125 mcg tablet 125 mcg PO DAILY 03/11/23 06/05/23 History (Synthroid) acetaminophen 325 mg tablet 650 mg PO ONCE PRN 06/03/23 06/03/23 History (Tylenol) clozapine 50 mg tablet 50 mg PO QHS 06/03/23 06/03/23 History duloxetine 60 mg capsule,delayed 120 mg PO DAILY 06/03/23 06/03/23 History release magnesium 250 mg tablet 250 mg PO DAILY 06/03/23 06/03/23 History nicotine 21 mg/24 hr daily 1 patch transdermal DAILY 06/03/23 06/03/23 History transdermal patch omega 5-eay-zjo-fish oil 60 mg-90 1 cap PO DAILY 06/03/23 06/03/23 History mg-500 mg capsule (Fish Oil) simvastatin 20 mg tablet 20 mg PO DAILY 06/03/23 06/03/23 History tamsulosin 0.4 mg capsule 0.4 mg PO QHS 06/03/23 06/03/23 History umeclidinium 62.5 mcg/actuation 1 inh inhalation DAILY 06/03/23 06/03/23 History blister powder for inhalation (Incruse Ellipta) Exam Narrative Exam Narrative: Aida is sitting up in her chair.. She is alert she is oriented only to person not to circumstance time or place. HEENT is unremarkable. Teeth are in good repair. Oropharynx noninjected no exudate. Neck supple nontender. No JVD normal carotid pulses Lungs are clear to auscultation Heart is regular rate and rhythm without appreciable murmur rub or gallop Abdomen soft nondistended nontender normal bowel sounds Extremities without peripheral cyanosis or edema. Neuro she has no facial asymmetry no dysarthric speech cognition she is aware of her surroundings she is unable to tell me where she is at nor is she able to tell me why she is here or how she got here. She does recognize that she has memory problems and gets frustrated when trying to explain herself. Pupils equally round reactive extraocular motions intact no focal cranial nerve deficits. No focal motor or sensory deficits although she does have generalized weakness but no paraparesis Psych Mental Status: other (demented) Speech and Movement: speech and movement normal Mood: other (demented) Affect: normal affect Time Spent Time spent with Patient: 40-54 minutes Time was spent: preparing to see the patient(eg.review tests), ordering medications,tests, procedures, referring, communicating with other health field care advocate, indepentently interpreting results and care coordination
--- NOTE | 2023-06-06 15:11 | CM.SBPSYCH ---
Date of service: 06/06/23 Time of Service: 15:12 SB Psychosocial/Act. Assmt Hospital Admission Admission Date: 06/06/23 Admission From:: [facility] ED Diagnosis:: Dementia Swing Bed Admission Swing Bed Admit Date:: 06/06/23 Swing Bed Level of Care: Level 1/SNF Social Supports PREVIOUS FUNCTIONAL STATUS/SOCIAL/FAMILY SUPPORTS:: Resided at [facility] prior to admission; was placed four months ago by son Willian who had relocated to [place] at the time, has since returned to [place]. Aida was funding Level 3 cost with her monthly income; SSI and Annuity. Her son reports she worked for the [employer] in [place] for many years. Prior to Admission Living Arrangements/Environment Prior to Admission:: Resided at [facility] prior to admission; was placed four months ago by son Willian who had relocated to [place] at the time, has since returned to [place]. Aida was funding cost with her monthly income; SSI and Pension. 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 Mild weakness noted. Cognitive:: Requires support with eating, oriented to self only though Willian reports she continues to know him. Communication:: Soft spoken, kind. Behavior:: Pleasant, repetitive. Admission Data Reason for Swing Bed Admission:: Progress mobility, disposition support. 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 Asbestos Wire Finisher: Bita Cruz Date Assessment was completed:: 06/06/23
--- NOTE | 2023-06-06 15:12 | CMSCP_ITS ---
Date of service: 06/06/23 Time of Service: 15:12 Swingbed Plan of Care Activites/Discharge Plan of care: SWING BED PROGRAM ACTIVITIES/DISCHARGE PLAN OF CARE ACTIVITIES PLAN Date: 06/06/23 Identified Need: Life enrichment during extended hospitalization Intervention/Plan: Socialization, ambulation, engagement, offering of activity cart, music therapy, etc. Initials: EBONY DISCHARGE PLAN Date: 06/06/23 Identified Need: Progress mobility and disposition support Intervention/Plan: Aida will continue to work with PT daily until she has met defined goals. Referrals for SNF-transition to LTC. Telephonic Nurse Case Manager Medicaid application submitted. Initials: EBONY
[2023-06-06] MEDS: QUEtiapine 25 MG TAB PO (20:38)
[2023-06-06] MEDS: Donepezil 5 MG TAB PO (21:05)
[2023-06-06] MEDS: Tamsulosin 0.4 MG CAPCR PO (21:05)
[2023-06-07] MEDS: buPROPion 75 MG TAB PO (08:34)
[2023-06-07] MEDS: buPROPion-XL 150 MG TABCR 300 MG PO (08:34)
[2023-06-07] MEDS: Cyanocobalamin 500 MCG TAB 1000 MCG PO (08:35)
[2023-06-07] MEDS: Umeclidinium 7 CAP INHALER 1 CAP IH (08:35)
[2023-06-07 09:00] VITALS: BP 106/68; PULSE 70; RESP 18; TEMP 36.7; O2SAT 99
[2023-06-07 09:05] LABS: Vitamin D 25 Total 63.9 ng/mL (30-100)
[2023-06-07 09:10] LABS: Vitamin B12 736 pg/mL (193-986)
--- NOTE | 2023-06-07 09:58 | PT.INIE ---
PT Notes Visit Reasons: Dementia,Deconditioning,Gait Instability,Loss ADL Inpatient Physical Therapy Swingbed Evaluation Date: 06/07/2023 Referring Doctor: Dale Edwards MD PT Orders: PT CONSULT: Extended stay-weakness, Exacerbation chronic condition Precautions: Fall. Standard. Dementia. Patient Profile/Admitting Diagnosis:?Aida is 63 yo female that presented to the ER on 06/05/23, brought in by police for mental health evaluation. Reports of increasing agitation and combative behavior. She was residing at the [facility], unclear if still the case. Patient does have dementia. Found to have hypercalcemia, elevated serum free T4 level, and UTI. She has not had any additional behavioral events while admitted. Patient transitioned to Swingbed status on 06/06/23. PMHX: See EMR Social History/Home Situation: Dementia/Alzheimer's recently living at [facility], but not welcome back now. Ambulating without an AD it seems, but other baseline status not known. Equipment Owned/DME: Unknown Subjective:?Cleared by nursing to see patient and patient is agreeable to PT. Patient is resting in bed at time of consult. Objective:? General Observation: Patient appears calm and alert. Poor ability to follow single step directions. Mental Status: Oriented to self Pain: None reported ROM: Right Upper Extremity: Within functional limits. Left Upper Extremity: Within functional limits. Right Lower Extremity: Within functional limits. Left Lower Extremity: Within functional limits. Strength: Right Upper Extremity: Grossly 4/5. Lens Gauger moderate. Left Upper Extremity: Grossly 4/5. Lens Gauger moderate. Right Lower Extremity: Hip flexors 4/5. Knee flexors 4/5. Knee extensors 5/5. Ankle dorsiflexors 4/5. Ankle plantarflexors 4/5. Left Lower Extremity: Hip flexors 4/5. Knee flexors 4/5. Knee extensors 5/5. Ankle dorsiflexors 4/5. Ankle plantarflexors 4/5. Sensation:?Too confused for any appropriate assessment Bed Mobility/Transfers: Rolling: Supervision Supine to sit: Supervision Sit to supine: Supervision Sit to stand: Supervision Stand to sit: Supervision Gait:?Ambulated 300 feet without AD requiring supervision Stairs:?Not assessed Balance:? Static Sitting: Good Dynamic Sitting: Good Static Standing: Good Dynamic Standing: Fair Therapeutic Exercise (52433) for instruction in therapeutic exercises to develop strength and endurance, range of motion and flexibility: 15 minutes Seated biceps curl, red band x10 ea Seated shoulder scaption x 10 - cues to tap knees and lift in order to get full ROM Seated knee extension 3# x10 ea Seated march 3# x10 ea Standing heel raises x10 Standing hip abduction x10 ea *Needs increased verbal and tactile cueing in order to perform exercises tasks, is able to help count Special Tests: Mobility Limitations Standardized Measure [facility]-PAC 6 clicks Basic Mobility Inpatient Short Form: Raw Score: 18 ? CMS Score: 47% Informed Consent/Education:?Patient instructed in purpose of PT consult and plan of care. Assessment: Patient transitioned to Swing bed status yesterday and is no longer in need of a sitter. She remains calm and pleasant today. Participates as best she can, but does have difficulty following single step instructions still in regards to performing exercises. Good mobility and requires supervision with walking. Not safe to be independent secondary to Alzheimer's. She is left sitting in chair in care of nursing for daily hygiene. Patient presents with clinical signs and symptoms consistent with current/admitting diagnoses that have resulted to mobility limitations, gait instability, generalized weakness, and impairment of motor control as demonstrated by the following impairment level findings: 1. Decreased strength to upper extremity major muscle groups 2. Decreased strength to lower extremity major muscle groups 3. Impaired sitting/standing balance 4. Impaired activity tolerance 5. Increased need for supervision for safe mobility Impairments are contributing to the following functional limitations: 1. Increased dependence with transfers 2. Inability to safely ambulate without supervision 3. Increase completion time for mobility ADL performance 4. Increased fall risk 5. Inability to negotiate steps alone safely Patient is assessed as a Moderate complexity based on the following: History: 63 year old female with impairment level findings, functional limitations, and past medical history as indicated above Examination: Demonstrable impairment in strength, balance, and mobility level with underlying impairments and functional limitations as documented above Presentation: Evolving Decision Making: Moderate complexity Goals: Goals x1 week 1. Supine-Sit: independent 2. Sit-Supine: independent 3. Sit-Stand: independent 4. Stand-Sit: independent 5. Bed-Chair: independent 6. Chair-Bed: independent 7. Independent gait on level surface with use of least restrictive device for at least 300 feet without report of pain nor dyspnea 8. Good static and dynamic standing balance/tolerance Plan of Care/Treatment Plan: 1-2x/day, 7 days/week x1 week. Plan of care has been reviewed with the LOFTSMAN providing the service under Physical Therapy direction. Initiate Physical Therapy intervention for strengthening, bed mobility, transfers, gait, stairs, balance training, and use of assistive device. Discharge Plan DISCHARGE RECOMMENDATIONS: Custodial Care secondary to Alzheimer's and need for improved strengthening TREATMENT CODE/TIME: 10:02-10:25 (23 minutes), [id number], [id number] Thank you for the opportunity to participate in the care of this patient. Lacy Newell, PT, DPT, OCS [facility] [place], [place]
[2023-06-07 11:10] VITALS: BP 115/75; PULSE 72; RESP 14; TEMP 36.2; O2SAT 100
[2023-06-07] MEDS: Donepezil 5 MG TAB PO (20:01)
[2023-06-07] MEDS: Tamsulosin 0.4 MG CAPCR PO (20:01)
[2023-06-08 08:26] VITALS: BP 118/73; PULSE 71; TEMP 36.9; O2SAT 99
[2023-06-08] MEDS: Cyanocobalamin 500 MCG TAB 1000 MCG PO (09:13)
[2023-06-08] MEDS: buPROPion-XL 150 MG TABCR 300 MG PO (09:13)
[2023-06-08] MEDS: buPROPion 75 MG TAB PO (09:13)
[2023-06-08] MEDS: Umeclidinium 7 CAP INHALER 1 CAP IH (10:10)
--- NOTE | 2023-06-08 13:26 | PT.INTREAT ---
Date of service: 06/08/23 Time of Service: 10:44 PT Notes Visit Reasons: Dementia,Deconditioning,Gait Instability,Loss ADL Inpatient Physical Therapy Treatment Note [facility] Date: 06/08/23 PRECAUTIONS: Fall, standard, activity as tolerated. IV access RUE. SUBJECTIVE: Patient sitting up in recliner, agreeable to therapy. AFTERNOON: same. OBJECTIVE: PAIN: Morning c/o pain in right hip with ambulation, AFTERNOON None BED MOBILITY/TRANSFERS Sit-stand: CGA Stand-sit: CGA Bed-Chair: CGA Chair-bed: CGA GAIT Assistive Device: none Weight bearing: full Assist: CGA, SBA Distance: 500 feet AFTERNOON: 600 feet Deviation: Reduced step height, shuffling pattern, reduced stride length. Tends to drift to right side, does not bump obstacles, no LOB, no SOB. VITALS: monitored by nursing staff. THEREX: AFTERNOON: brisk extended walk until patient c/o fatigue, for cardiovascular strengthening. ASSESSMENT: Patient tolerates therapy well, however is confused, oriented only to self. AFTERNOON: patient reports her brother is squished over there and indicates the roof of the new mental health wing of the hospital. PLAN: Continue global strengthening per plan of care until patient achieves placement in a SNF vs LTC. TREATMENT CODE/TIME: 74041 Gait 8 minutes beginning at 10:44. AFTERNOON [id number] Ther Ex 12 minutes beginning at 14:52
--- NOTE | 2023-06-08 16:25 | PHA.REVIEW2 ---
Pharmacy Admission Review Admission Clinical Review Admission Pharmacy Review: (Updated 06/07/23 @ 00:11 by MEG MADDOX) Elevated serum free T4 level (Acute) sulfadiazine Allergy (Severe, Verified 06/05/23 14:52) doxycycline Allergy (Intermediate, Verified 03/11/23 14:20) pregabalin [From Lyrica] Allergy (Intermediate, Verified 06/05/23 14:52) Resuscitation Status DNR/DNI Height 5 ft 4 in Weight 48.3 kg Comments Comments/Follow Ups: Watch VS, labs and for med changes (possible renal dose adjustments). CM working on placement. Pharmacy Admission Review Renal Dosing Medications needing adjustments: Reviewed (Crcl ~43.9 mL/min. Recommended to consider a max dose of bupropion of 150 mg with her current renal function, will mention to provider.) Anticoagulation DVT Prophylaxis: N/A Therapeutic Anticoagulation: N/A Opiate Usage Evaluate Pain Scale/Pains Meds: N/A Relevant Labs Electrolytes, C-Reactive P, ESR: N/A DM Control DM Control: N/A Cardiac Review BP, HR, EF%: Reviewed (BP and HR have been within normal limits so far this admission) QTc Review QTc: N/A IV to PO Switch IV Medications: Reviewed Home Meds Home Med List reviewed: Reviewed Relevent Home Meds Not ordered & why?: cholecalciferol (on hold due to hypercalcemia/provider to check levels per H&P), levothyroxine (on hold per provider, provider to start a lower dose in a couple of days per H&P) Current Meds Current Medication Order Review: Reviewed Comments Comments/Follow Ups: Watch VS, labs and for med changes (possible renal dose adjustments). CM working on placement.
[2023-06-08] MEDS: Donepezil 5 MG TAB PO (21:01)
[2023-06-08] MEDS: Tamsulosin 0.4 MG CAPCR PO (21:01)
[2023-06-09] MEDS: Umeclidinium 7 CAP INHALER 1 CAP IH (08:33)
[2023-06-09] MEDS: Milk of Magnesia 30 ML CUP PO (08:59)
[2023-06-09] MEDS: buPROPion-XL 150 MG TABCR PO (08:59)
[2023-06-09] MEDS: Cyanocobalamin 500 MCG TAB 1000 MCG PO (08:59)
[2023-06-09 15:14] VITALS: BP 110/73; PULSE 79; TEMP 36; O2SAT 99
--- NOTE | 2023-06-09 16:45 | PT.INNT ---
Date of service: 06/09/23 Time of Service: 13:04 PT Notes Visit Reasons: Dementia,Deconditioning,Gait Instability,Loss ADL Patient perseverating on her brother who is visiting and brought Charlie - patient indicates empty chair, or out the window, unclear. Refuses therapy at 13:04, 16:35. Per conversation with supervising PT Keri Camacho, patient treatment frequency to be reduced to 3x/week as her ambulation, balance continue to be good.
[2023-06-09] MEDS: Donepezil 5 MG TAB PO (19:28)
[2023-06-09] MEDS: Tamsulosin 0.4 MG CAPCR PO (21:30)
[2023-06-10] MEDS: Cyanocobalamin 500 MCG TAB 1000 MCG PO (08:04)
[2023-06-10] MEDS: buPROPion-XL 150 MG TABCR PO (08:05)
[2023-06-10] MEDS: Umeclidinium 7 CAP INHALER 1 CAP IH (08:23)
[2023-06-10 09:04] VITALS: BP 123/80; PULSE 75; TEMP 36.3; O2SAT 100
[2023-06-10] MEDS: Polyethylene Glycol 3350 17 GM PACKET PO (13:18)
--- NOTE | 2023-06-10 13:55 | PT.INTREAT ---
Date of service: 06/10/23 Time of Service: 10:27 PT Notes Visit Reasons: Dementia,Deconditioning,Gait Instability,Loss ADL Inpatient Physical Therapy Treatment Note [facility] Date: 06/10/23 PRECAUTIONS: Fall, standard, activity as tolerated. MARIAMA alarm in place SUBJECTIVE: Patient sitting in recliner with footrest elevated, both legs over the side of the footrest as though patient is trying to stand without lowering footrest. Initially disagreeable to therapy, however when this therapist offers to help her get her sneakers on she becomes more agreeable. OBJECTIVE: PAIN: none reported. BED MOBILITY/TRANSFERS Sit-stand: SBA Stand-sit: SBA Bed-Chair: SBA Chair-bed: SBA GAIT Assistive Device: none Weight bearing: full Assist: SBA, supervision due to dementia Distance: 700 feet Deviation: Sneakers appear to alter patient's gait. No LOB, however patients gait meanders across the width of the hallway rather than maintaining a straight line. VITALS: monitored by nursing staff. ASSESSMENT: Patient tolerates therapy well, is resting comfortably in recliner at end of session. Reactivated MARIAMA alarm. PLAN: Continue global strengthening and balance training until patient obtains placement in a SNF. TREATMENT CODE/TIME: 22960 Gait 11 minutes beginning at 10:27
[2023-06-10] MEDS: Bisacodyl 10 MG SUPP PR (14:42)
--- NOTE | 2023-06-10 17:12 | PDOC.CMACT ---
Date of service: 06/10/23 Time of Service: 17:12 Care Management Activity Note Activity Note Text Activity Note Text: Aida has been working with PT, walking in the halls, working on global strengthening. She has been provided a coloring book and crayons for life enrichment. She is pleasant in interaction, talking with staff. She requires assistance to ambulate to the bathroom/chair/bed. Nursing reports she is impulsive, but polite and easily redirectable. CM continues to support life enrichment for Aida during her prolonged hospitalization.
--- NOTE | 2023-06-10 17:17 | CMPROGNOTE_ITS ---
Date of service: 06/10/23 Time of Service: 17:17 Care Management Progress Note Progress Note Text Progress Note Text: S/O: Aida has been working with PT, currently three times a week for global strengthening. CM spoke to her son, Conor, today, and provided an update. Per nursing, Aida is impulsive, but polite and redirectable. Aida does not have a qualifying three night hospitalization to qualify her for short term rehab. Her [facility] is pending. Per Conor, he mailed it certified, and it has not yet been delivered. CM stressed the importance of this process moving forward, as she is currently in private pay, swingbed level of care. A referral was sent to [facility], which is being reviewed. She would be private pay, which would require a deposit of $11,036, per Margie, admissions at [facility]. Per Conor, this is not feasible at this time. CM discussed other options for discharge, such as community care homes, and explained that this would be private pay, and Conor would be required to make those arrangements. Conor is agreeable to this option, at least while shelter [facility] is pending. Palliative care was consulted today to discuss goals of care; CM will inform palliative care to call Conor, as he is her DPOA and will be supporting her decision making. CM will continue to follow. A: Aida is a 63 year old female admitted to [facility] on 06/06/23 in SWB1 for dementia, deconditioning. P: Aida remains in [facility], working with PT for stability and strengthening. Palliative care consulted to discuss goals of care. Conor, her son, is also her DPOA and supports her decision making. Aida will remain at [facility] until appropriate placement is found. Transportation to be determined by disposition. CM will continue to follow.
[2023-06-10] MEDS: Donepezil 5 MG TAB PO (21:15)
[2023-06-10] MEDS: Tamsulosin 0.4 MG CAPCR PO (21:16)
[2023-06-11] MEDS: Umeclidinium 7 CAP INHALER 1 CAP IH (07:40)
[2023-06-11 08:00] VITALS: BP 113/73; PULSE 76; RESP 16; TEMP 36.3; O2SAT 99
[2023-06-11] MEDS: buPROPion-XL 150 MG TABCR PO (08:45)
[2023-06-11] MEDS: Cyanocobalamin 500 MCG TAB 1000 MCG PO (08:45)
[2023-06-11] MEDS: Polyethylene Glycol 3350 17 GM PACKET PO (08:45)
--- NOTE | 2023-06-11 11:37 | CHAPLAIN ---
Aida was up in the chair when I visited. She had a jacket and her sneakers on. Aida responded to questions with very short answers, but was pleasant. She told me she was from right here. Care Management has been in touch with Aida's son and they working to find a placement for Aida and working on getting her senior living Medicare completed so there will be a payment source.
--- NOTE | 2023-06-11 13:05 | W.PALLCONSUL ---
Date of service: 06/11/23 Time of Service: 13:05 History of Present Illness Narrative: Aida was seen in her hospital room. She just returned to her chair after ambulating to the with nursing. She is unable to communicate. Staff report that she has not had any behaviors during her time at [facility]. She tries to get up frequently and does not remember to use call light. She has alarms in place. She has not had any falls. She requires assistance with personal care. She is currently being billed to pay for her stay privately. She did not have a 3 night qualifying stay. She has Long-term medicaid application pending. Long-term plan unclear for her. Attempted to contact her son, Willian to discuss plan/options but left message for him to call Palliative office. Assessment and Plan Assessment and plan (1) CKD (chronic kidney disease), stage III: (2) Alzheimer's dementia: (3) GERD (gastroesophageal reflux disease): (4) History of depression: (5) Hyperlipidemia: (6) Hypothyroidism: (7) Palliative care encounter: Status: Acute Assessment and plan: Aida is a 63 year old female with early Alzheimer's who was living at but had behaviors and was brought to the ED. She is currently on swing bed on self pay status. She has not had any behaviors since she was admitted. 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 Unfortunately, she is not able to engage in the visit and her son was not available by phone, message left. Palliative will continue to follow along and assist as able. Review of Systems Narrative: unable due to mental status. PFSH All Active Problems (Updated 06/12/23 @ 11:18 by Joan Cardoso NP) Palliative care encounter (Acute) Alzheimer's dementia with behavioral disturbance (Chronic) Elevated serum free T4 level (Acute) Medical History Alzheimer's dementia CKD (chronic kidney disease), stage III Elevated blood pressure reading GERD (gastroesophageal reflux disease) History of depression History of prediabetes Hyperlipidemia Hypothyroidism Leukocytosis Microcytosis Other abnormal tumor markers Sleep apnea Urinary incontinence, mixed Vitamin D deficiency Surgical History H/O total hysterectomy H/O tubal ligation History of cholecystectomy Hx of removal of cyst Social History Smoking/Tobacco Use Status: Never Smoking risk assessment performed?: Yes Alcohol Intake: current Housing: other Do you feel safe at home: Yes Do you feel safe in your relationship?: Yes Exam Narrative Exam Narrative: General: pleasant, middle aged female, sitting up in the recliner in her hospital room with coloring supplies in front of her. She can state her first name but is not oriented to place, time or situation. She cannot put words together to form a sentence. HEENT: normocephalic, atraumatic, EOMI, MMM. Neck: supple, no JVD. Respiratory: respirations appear even and unlabored. Extremities: moves all 4 extremities freely. Results Last Vital Signs Temp 36.3 C L 06/11/23 08:00 Pulse 76 06/11/23 08:00 Resp 16 06/11/23 08:00 BP 113/73 06/11/23 08:00 Pulse Ox 99 06/11/23 08:00
--- NOTE | 2023-06-11 16:01 | PT.INTREAT ---
Date of service: 06/11/23 Time of Service: 15:34 PT Notes Visit Reasons: Dementia,Deconditioning,Gait Instability,Loss ADL Inpatient Physical Therapy Treatment Note [facility] Date: 06/11/23 PRECAUTIONS: Fall, standard, activity as tolerated. SUBJECTIVE: Patient is sitting up in recliner with footrest extended and legs over the side as though she is trying to stand up without lowering the footrest. Wearing sneakers already. Agreeable to therapy. OBJECTIVE: PAIN: none reported BED MOBILITY/TRANSFERS Sit-stand: SBA Stand-sit: SBA Bed-Chair: SBA Chair-bed: SBA GAIT Assistive Device: none Weight bearing: full Assist: SBA Distance: approximately 1000 feet Deviation: Patient requires mod cueing cueing for safety and participation VITALS: monitored by nursing staff. ASSESSMENT: Patient tolerates therapy well, returns to recliner with feet elevated on foot rest and MARIAMA alarm in place and active. PLAN: Continue global strengthening per plan of care 3x per week until patient obtains placement in a SNF TREATMENT CODE/TIME: 78864 Ther Ex 13 minutes beginning at 15:34
[2023-06-11] MEDS: Donepezil 5 MG TAB PO (20:32)
[2023-06-11] MEDS: Tamsulosin 0.4 MG CAPCR PO (20:32)
[2023-06-12 07:18] VITALS: BP 129/80; PULSE 71; RESP 18; TEMP 36.8; O2SAT 98
[2023-06-12] MEDS: buPROPion-XL 150 MG TABCR PO (07:42)
[2023-06-12] MEDS: Polyethylene Glycol 3350 17 GM PACKET PO (07:42)
[2023-06-12] MEDS: Cyanocobalamin 500 MCG TAB 1000 MCG PO (07:42)
[2023-06-12] MEDS: Umeclidinium 7 CAP INHALER 1 CAP IH (08:02)
[2023-06-12 17:12] LABS: Bilirubin Negative (Negative); Blood Negative (Negative); Clarity Clear (Clear); Glucose Negative (Negative); Ketones Negative (Negative); Leukocyte Esterase Moderate (Negative); Nitrite Negative (Negative); Specific Gravity 1.025 (1.005-1.025)
[2023-06-12 17:42] LABS: WBC 20-50 HPF (0-5)
[2023-06-12 17:43] LABS: Bacteria Negative HPF (Negative); C & S Indicated? Yes; Crystals Few Calcium Oxalate HPF (Negative); Epithelial Cells Few HPF (Negative); Mucus Moderate (Negative); RBC 0-2 HPF (0-2)
[2023-06-12] MEDS: Phenazopyridine 100 MG TAB PO (18:13)
[2023-06-12] MEDS: levoFLOXacin 500 MG, levoFLOXacin 250 MG 750 MG PO (18:13)
[2023-06-12] MEDS: Donepezil 5 MG TAB PO (20:46)
[2023-06-12] MEDS: Tamsulosin 0.4 MG CAPCR PO (20:46)
[2023-06-13 08:07] VITALS: BP 130/84; PULSE 69; RESP 17; TEMP 36.5; O2SAT 99
[2023-06-13 08:43] VITALS: PULSE 79; RESP 18; RESP 8; O2SAT 100
[2023-06-13] MEDS: Albuterol/Ipratropium 3 ML UPD VIAL UPD (08:43)
[2023-06-13] MEDS: Magnesium Citrate 300 ML BTL 150 ML PO (08:49)
[2023-06-13 08:50] VITALS: PULSE 91; O2SAT 99
[2023-06-13] MEDS: Polyethylene Glycol 3350 17 GM PACKET PO (08:50)
[2023-06-13] MEDS: Phenazopyridine 100 MG TAB PO ×2 (08:50→21:12)
[2023-06-13] MEDS: buPROPion-XL 150 MG TABCR PO (08:50)
[2023-06-13] MEDS: Cyanocobalamin 500 MCG TAB 1000 MCG PO (08:50)
--- NOTE | 2023-06-13 12:58 | PGE_ITS ---
Date of Service Date of service: 06/13/23 Time of Service: 12:58 Assessment and Plan Assessment and plan (1) UTI (urinary tract infection): Status: Acute Assessment and plan: levaquin day 2 while awaiting culture report no symptoms of systemic infection pyridium helping for frequency, continue PRN (2) Alzheimer's dementia with behavioral disturbance: Status: Chronic Assessment and plan: continue her Aricept, duloxetine, and Wellbutrin. CM to assist family (son lives out of state) in finding a Alzheimers SNF. Patient does not need constant sitter but does require close monitoring by nursing as she tends to wander. Use of bed and chair alarms strongly advised. (3) Elevated serum free T4 level: Status: Acute Assessment and plan: probably over replacement of her levothyroxine. held her 125 mcg dose for a few days and now will restart at lower level of 100 mcg; recheck levels in 6 weeks. (4) Hypothyroidism: Assessment and plan: as above (5) Discharge planning issues: Status: Acute Assessment and plan: palliative care and case management following. referrals placed. discussed with DR Smith. Subjective Subjective Patient reports: no new complaints, tolerating liquids well, tolerating a regular diet, bowel movement and afebrile Interval history since last seen: decreased urinary frequency Objective Last Vital Signs Temp 36.5 C 06/13/23 08:07 Pulse 91 H 06/13/23 08:50 Resp 18 06/13/23 08:43 BP 130/84 06/13/23 08:07 Pulse Ox 99 06/13/23 08:50 Laboratory Results - last 24 hr 06/12/23 17:04 Urine Color Yellow Urine Clarity Clear Urine pH 6.0 Ur Specific [place] 1.025 Urine Protein Negative Urine Ketones Negative Urine Blood Negative Urine Nitrite Negative Urine Bilirubin Negative Urine Urobilinogen 1.0 H Ur Leukocyte Esterase Moderate H Urine RBC 0-2 Urine WBC 20-50 H Ur Epithelial Cells Few Urine Crystals Few Calcium Oxalate Urine Bacteria Negative Urine Mucus Moderate Ur Culture Indicated? Yes Urine Glucose Negative Time Spent with Patient Time Spent with Patient: 25-34 minutes Time was spent: preparing to see the patient(eg.review tests), ordering medications,tests, procedures and indepentently interpreting results
[2023-06-13] MEDS: levoFLOXacin 500 MG, levoFLOXacin 250 MG 750 MG PO (17:31)
[2023-06-13] MEDS: Tamsulosin 0.4 MG CAPCR PO (21:12)
[2023-06-13] MEDS: Melatonin 3 MG TAB 6 MG PO (21:13)
[2023-06-13] MEDS: Donepezil 5 MG TAB PO (21:13)
[2023-06-14] MEDS: Levothyroxine 100 MCG TAB PO (06:35)
[2023-06-14] MEDS: Polyethylene Glycol 3350 17 GM PACKET PO (08:10)
[2023-06-14] MEDS: Phenazopyridine 100 MG TAB PO ×3 (08:11→21:47)
[2023-06-14] MEDS: buPROPion-XL 150 MG TABCR PO (08:11)
[2023-06-14] MEDS: Cyanocobalamin 500 MCG TAB 1000 MCG PO (08:11)
[2023-06-14 08:30] VITALS: PULSE 77; RESP 1; RESP 16; RESP 8; O2SAT 98
[2023-06-14] MEDS: Albuterol/Ipratropium 3 ML UPD VIAL UPD (08:30)
[2023-06-14 08:37] VITALS: PULSE 65; O2SAT 97
[2023-06-14 11:16] VITALS: BP 106/71; PULSE 71; RESP 16; TEMP 36.5; O2SAT 98
[2023-06-14] MEDS: levoFLOXacin 500 MG, levoFLOXacin 250 MG 750 MG PO (17:39)
[2023-06-14] MEDS: Melatonin 3 MG TAB 6 MG PO (21:47)
[2023-06-14] MEDS: Tamsulosin 0.4 MG CAPCR PO (21:47)
[2023-06-14] MEDS: Donepezil 5 MG TAB PO (21:47)
[2023-06-15] MEDS: Levothyroxine 100 MCG TAB PO (06:29)
[2023-06-15] MEDS: Cyanocobalamin 500 MCG TAB 1000 MCG PO (08:07)
[2023-06-15] MEDS: buPROPion-XL 150 MG TABCR PO (08:07)
[2023-06-15] MEDS: Phenazopyridine 100 MG TAB PO ×3 (08:07→21:02)
[2023-06-15] MEDS: Polyethylene Glycol 3350 17 GM PACKET PO (08:07)
[2023-06-15 08:15] VITALS: BP 127/76; PULSE 77; RESP 16; TEMP 36.5; O2SAT 98
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
--- NOTE | 2023-06-15 16:37 | PDOC.CMPRO ---
Date of service: 06/15/23 Time of Service: 16:37 Care Management Progress Note Progress Note Text Progress Note Text: Aida continues to progress in hospital environment; now walking long distances per PT; Lydia PT reports intent to discharge services. CM notified interdisciplinary team; PATIENT SCHEDULING MANAGER reports Aida will transition to SWB2 while awaiting adjunct faculty for medical terminology medicaid and disposition.
[2023-06-15] MEDS: levoFLOXacin 500 MG, levoFLOXacin 250 MG 750 MG PO (17:45)
[2023-06-15] MEDS: Tamsulosin 0.4 MG CAPCR PO (21:02)
[2023-06-15] MEDS: Donepezil 5 MG TAB PO (21:02)
[2023-06-15] MEDS: Melatonin 3 MG TAB 6 MG PO (21:02)
[2023-06-16] MEDS: Levothyroxine 100 MCG TAB PO (06:14)
[2023-06-16] MEDS: Polyethylene Glycol 3350 17 GM PACKET PO (07:52)
[2023-06-16] MEDS: Phenazopyridine 100 MG TAB PO ×3 (07:52→22:11)
[2023-06-16] MEDS: Cyanocobalamin 500 MCG TAB 1000 MCG PO (07:52)
[2023-06-16] MEDS: buPROPion-XL 150 MG TABCR PO (07:53)
--- NOTE | 2023-06-16 17:38 | NUR.NOTE ---
Pt presented with increased anxiety, impulsiveness, trying to leave. Pt is a high fall risk, charge nurse Racheal notified and requested medication to help calm the pt down.Nursing Note:
[2023-06-16] MEDS: levoFLOXacin 500 MG, levoFLOXacin 250 MG 750 MG PO (18:14)
[2023-06-16] MEDS: Tamsulosin 0.4 MG CAPCR PO (21:26)
[2023-06-16] MEDS: Donepezil 5 MG TAB PO (21:26)
[2023-06-16] MEDS: Melatonin 3 MG TAB 6 MG PO (22:12)
[2023-06-17] MEDS: Levothyroxine 100 MCG TAB PO (05:46)
[2023-06-17] MEDS: Phenazopyridine 100 MG TAB PO (07:32)
[2023-06-17] MEDS: buPROPion-XL 150 MG TABCR PO (07:32)
[2023-06-17] MEDS: Cyanocobalamin 500 MCG TAB 1000 MCG PO (07:32)
[2023-06-17] MEDS: Polyethylene Glycol 3350 17 GM PACKET PO (07:32)
[2023-06-17 09:34] VITALS: BP 135/98; PULSE 129; RESP 16; TEMP 36.5; O2SAT 98
[2023-06-17] MEDS: QUEtiapine 25 MG TAB 12.5 MG PO (09:40)
[2023-06-17 10:38] LABS: Abs Immature Grans 0.03 10^3/uL (0.0-0.06); Absolute Basophil Count 0.05 10^3/uL (0.0-0.2); Absolute Eosinophil Count 0.05 10^3/uL (0.0-0.7); Absolute Monocyte Count 0.63 10^3/uL (0.1-0.8); Absolute Neutrophil Count 5.14 10^3/uL (1.2-6.7); Basophils % 0.7; Eosinophils % 0.7; HCT 39.7 % (36.0-46.0); HGB 12.9 g/dL (11.2-15.7); Immature Grans % 0.4; Lymphocytes % 21.3; MCH 28.4 pg (27.0-33.0); MCHC 32.5 % (32.0-36.0); MCV 87 fL (80-95); MPV 8.9 fL (8.0-11.0); Monocytes % 8.4; Neutrophils % 68.5; Platelet Count 281 10^3/uL (130-400); RBC 4.55 10^6/uL (3.93-5.22); RDW 13.1 % (11.7-14.6); RDW-SD 41.3 fL
[2023-06-17 10:59] LABS: ALT 29 U/L (14-59); AST 19 U/L (15-37); Albumin 3.6 g/dL (3.4-5.0); Alkaline Phosphatase 54 U/L (46-116); Anion Gap 10.8 mmol/L (3-11); BUN 11 mg/dL (7-18); Bilirubin, Total 0.4 mg/dL (0.2-1.0); CO2 27.2 mmol/L (21.0-32.0); CREATININE 1.1 mg/dL (0.55-1.02); Calcium 10.3 mg/dL (8.5-10.1); Chloride 105 mmol/L (98-107); Estimated GFR 56.46 (mL/min/1.73m2); Glucose 108 mg/dL (74-106); Magnesium 2.2 mg/dL (1.8-2.4); Potassium 3.9 mmol/L (3.5-5.1); Sodium 143 mmol/L (136-145); Total Protein 7.3 g/dL (6.4-8.2)
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
--- NOTE | 2023-06-17 15:54 | PHA.ACLINAW ---
Pharmacy Clinical Inervention - Renal Dosing Renal Dosing: BUN 11 mg/dL (7-18) 06/17/23 10:35 Creatinine 1.1 mg/dL (0.55-1.02) H 06/17/23 10:35 - Anticoagulation Anticoagulation: Hgb 12.9 g/dL (11.2-15.7) 06/17/23 10:35 Hct 39.7 % (36.0-46.0) 06/17/23 10:35 Plt Count 281 10^3/uL (130-400) 06/17/23 10:35 Creatinine 1.1 mg/dL (0.55-1.02) H 06/17/23 10:35 - DM Control DM Control: Glucose 108 mg/dL (74-106) H 06/17/23 10:35 - Pharmacy Antibiotic Review Pharmacy Antibiotic Activity: 48 hour review, Renal function adjustment Comments: adjusted levaquin dosing to q48h due to renal function and changed pyridium tid from scheduled to prn as suggested max dosing is up to 2 days
--- NOTE | 2023-06-17 18:42 | PGE_ITS ---
Date of Service Date of service: 06/17/23 Time of Service: 14:00 Subjective Subjective Interval history since last seen: Nursing noted patient appears to be agitated. Palliative care saw patient. Patient was given Seroquel 12.5 mg and then was calm and sleeping. Awake and alert following commands later in the day with no signs of aggression. Changed medication orders to reflect recommendations of palliative care. Check labs wh ich are normal today. Unable to collect a urine specimen as patient is unable to provide a clean-catch and does not want assistance. She does not have fever no leukocytosis she does not have foul smelling urine. We will monitor the effects of the new medication change Discussed with Dr. Villagomez Discussed with Dr. Gan palliative care Objective Last Vital Signs Temp 36.5 C 06/17/23 09:34 Pulse 129 H 06/17/23 09:34 Resp 16 06/17/23 09:34 BP 135/98 H 06/17/23 09:34 Pulse Ox 98 06/17/23 09:34 Laboratory Results - last 24 hr 06/17/23 06/17/23 10:35 10:35 WBC 7.50 RBC 4.55 Hgb 12.9 Hct 39.7 MCV 87 MCH 28.4 MCHC 32.5 RDW 13.1 Plt Count 281 MPV 8.9 Immature Gran % 0.4 Neutrophils % 68.5 Lymphocytes % 21.3 Monocytes % 8.4 Eosinophils % 0.7 Basophils % 0.7 Nucleated RBC % 0.0 Absolute Neutrophils 5.14 Absolute Lymphocytes 1.60 Absolute Monocytes 0.63 Absolute Eosinophils 0.05 Absolute Basophils 0.05 Sodium 143 Potassium 3.9 Chloride 105 Carbon Dioxide 27.2 Anion Gap 10.8 BUN 11 Creatinine 1.1 H Est GFR (CKD-EPI 2020) 56.46 Glucose 108 H Calcium 10.3 H Magnesium 2.2 Total Bilirubin 0.4 AST 19 ALT 29 Alkaline Phosphatase 54 Total Protein 7.3 Albumin 3.6 Time Spent with Patient Time Spent with Patient: <25 minutes Time was spent: ordering medications,tests, procedures
[2023-06-17] MEDS: Donepezil 5 MG TAB PO (21:12)
[2023-06-17] MEDS: Tamsulosin 0.4 MG CAPCR PO (21:12)
[2023-06-17] MEDS: traZODone 50 MG TAB PO (21:12)
[2023-06-17] MEDS: Melatonin 3 MG TAB 9 MG PO (21:12)
[2023-06-17 21:29] LABS: Bilirubin Negative (Negative); Blood Negative (Negative); Clarity Clear (Clear); Glucose 100 mg/dL (Negative); Ketones Negative (Negative); Leukocyte Esterase Negative (Negative); Nitrite Positive (Negative); Specific Gravity 1.025 (1.005-1.025); pH 6.5 (5-8)
[2023-06-17 21:48] LABS: Bacteria Rare HPF (Negative); C & S Indicated? No/Sq. Contamination; Casts 0-2 Hyaline LPF (Negative); Crystals Moderate Amorphous HPF (Negative); Epithelial Cells Moderate HPF (Negative); Mucus Moderate (Negative); Other Cells Rare Transitional (Negative); RBC 0-2 HPF (0-2); WBC 0-2 HPF (0-5)
[2023-06-18] MEDS: Levothyroxine 100 MCG TAB PO (06:10)
[2023-06-18 09:55] VITALS: BP 112/71; PULSE 73; RESP 18; TEMP 36.6; O2SAT 98
[2023-06-18] MEDS: buPROPion-XL 150 MG TABCR PO (09:59)
[2023-06-18] MEDS: Cyanocobalamin 500 MCG TAB 1000 MCG PO (09:59)
[2023-06-18] MEDS: Polyethylene Glycol 3350 17 GM PACKET PO (09:59)
[2023-06-18] MEDS: Tamsulosin 0.4 MG CAPCR PO (21:42)
[2023-06-18] MEDS: Donepezil 5 MG TAB PO (21:42)
[2023-06-18] MEDS: Mirtazapine 15 MG TAB PO (21:42)
[2023-06-19] MEDS: Levothyroxine 100 MCG TAB PO (05:58)
[2023-06-19 08:46] VITALS: BP 118/76; PULSE 67; RESP 18; TEMP 36.5; O2SAT 100
[2023-06-19] MEDS: buPROPion-XL 150 MG TABCR PO (08:49)
[2023-06-19] MEDS: Polyethylene Glycol 3350 17 GM PACKET PO (08:49)
[2023-06-19] MEDS: Cyanocobalamin 500 MCG TAB 1000 MCG PO (08:49)
[2023-06-19] MEDS: QUEtiapine 25 MG TAB 12.5 MG PO (23:12)
[2023-06-19] MEDS: Tamsulosin 0.4 MG CAPCR PO (23:12)
[2023-06-19] MEDS: Donepezil 5 MG TAB PO (23:12)
[2023-06-19] MEDS: Mirtazapine 15 MG TAB PO (23:12)
[2023-06-20 07:09] VITALS: BP 127/81; PULSE 82; RESP 17; TEMP 36.8; O2SAT 98
[2023-06-20] MEDS: buPROPion-XL 150 MG TABCR PO (08:35)
[2023-06-20] MEDS: Levothyroxine 100 MCG TAB PO (08:35)
[2023-06-20] MEDS: Polyethylene Glycol 3350 17 GM PACKET PO (08:35)
[2023-06-20] MEDS: Cyanocobalamin 500 MCG TAB 1000 MCG PO (08:35)
[2023-06-20] MEDS: QUEtiapine 25 MG TAB 12.5 MG PO ×2 (09:59→20:49)
--- NOTE | 2023-06-20 13:54 | W.PM.PROGNOT ---
Date of Service Date of service: 06/20/23 Time of Service: 13:54 Assessment and Plan Assessment and plan (1) UTI (urinary tract infection): Status: Acute Assessment and plan: levaquin discontinued - day 3 dose given - recheck urine; no fevers, no leukocytosis no symptoms of systemic infection pyridium discontinued s/t renal fxn (2) Alzheimer's dementia with behavioral disturbance: Status: Chronic Assessment and plan: continue her Aricept, duloxetine, and Wellbutrin. CM to assist family (son lives out of state) in finding a Alzheimers SNF. Patient does not need constant sitter but does require close monitoring by nursing as she tends to wander. Use of bed and chair alarms strongly advised. Mirtazipine at night and seroquel prn, she has been sleeping well and has not had any untoward behavior. (3) Elevated serum free T4 level: Status: Acute Assessment and plan: probably over replacement of her levothyroxine. held her 125 mcg dose for a few days and now will restart at lower level of 100 mcg; recheck levels in 6 weeks. (4) Hypothyroidism: Assessment and plan: as above (5) Discharge planning issues: Status: Acute Assessment and plan: palliative care and case management following. referrals placed. discussed with Dr. Villagomez Subjective Subjective Patient reports: no new complaints Interval history since last seen: Awake, alert, disoriented in usual state, calm, cooperative, pleasant. Taking medications when offered without incident. Ambulatory to bathroom without issue. She had a shower today and is eating 100% of her meals. Seems frustrated when she does not say the correct word, can not form a sentice. Exam Narrative Exam Narrative: Aida is sitting up in her chair.. She is alert she is oriented only to person not to circumstance time or place. HEENT is unremarkable. Teeth are in good repair. Oropharynx noninjected no exudate. Neck supple nontender. No JVD normal carotid pulses Lungs are clear to auscultation Heart is regular rate and rhythm without appreciable murmur rub or gallop Abdomen soft nondistended nontender normal bowel sounds Extremities without peripheral cyanosis or edema. Neuro she has no facial asymmetry no dysarthric speech cognition she is aware of her surroundings she is unable to tell me where she is at nor is she able to tell me why she is here or how she got here. She does recognize that she has memory problems and gets frustrated when trying to explain herself. Pupils equally round reactive extraocular motions intact no focal cranial nerve deficits. No focal motor or sensory deficits although she does have generalized weakness but no paraparesis Psych Mental Status: other (demented) Speech and Movement: speech and movement normal Mood: other (demented) Affect: normal affect Objective Last Vital Signs Temp 36.8 C 06/20/23 07:09 Pulse 82 06/20/23 07:09 Resp 17 06/20/23 07:09 BP 127/81 06/20/23 07:09 Pulse Ox 98 06/20/23 07:09 Time Spent with Patient Time Spent with Patient: 35-49 minutes Time was spent: preparing to see the patient(eg.review tests), ordering medications,tests, procedures, referring, communicating with other health school childcare attendant, indepentently interpreting results, counseling the patient and care coordination
[2023-06-20] MEDS: Docusate Sodium 100 MG CAP PO ×2 (13:55→20:49)
[2023-06-20] MEDS: Tamsulosin 0.4 MG CAPCR PO (20:49)
[2023-06-20] MEDS: Mirtazapine 15 MG TAB PO (20:49)
[2023-06-20] MEDS: Donepezil 5 MG TAB PO (20:49)
[2023-06-21] MEDS: Levothyroxine 100 MCG TAB PO (06:17)
[2023-06-21 08:12] VITALS: BP 140/83; PULSE 73; RESP 18; TEMP 36.2; O2SAT 100
[2023-06-21] MEDS: QUEtiapine 25 MG TAB 12.5 MG PO (10:07)
[2023-06-21] MEDS: Polyethylene Glycol 3350 17 GM PACKET PO (10:07)
[2023-06-21] MEDS: Docusate Sodium 100 MG CAP PO ×2 (10:07→21:20)
[2023-06-21] MEDS: Cyanocobalamin 500 MCG TAB 1000 MCG PO (10:07)
[2023-06-21] MEDS: buPROPion-XL 150 MG TABCR PO (10:08)
[2023-06-21] MEDS: Tamsulosin 0.4 MG CAPCR PO (21:20)
[2023-06-21] MEDS: Mirtazapine 15 MG TAB PO (21:20)
[2023-06-21] MEDS: Donepezil 5 MG TAB PO (21:20)
[2023-06-22] MEDS: Melatonin 3 MG TAB 9 MG PO ×2 (01:41→20:35)
[2023-06-22] MEDS: QUEtiapine 25 MG TAB 12.5 MG PO ×2 (01:41→14:18)
[2023-06-22] MEDS: Acetaminophen 325 MG TAB PO (01:43)
[2023-06-22] MEDS: Levothyroxine 100 MCG TAB PO (06:49)
[2023-06-22] MEDS: Polyethylene Glycol 3350 17 GM PACKET PO (08:25)
[2023-06-22] MEDS: Cyanocobalamin 500 MCG TAB 1000 MCG PO (08:25)
[2023-06-22] MEDS: buPROPion-XL 150 MG TABCR PO (08:25)
[2023-06-22] MEDS: Docusate Sodium 100 MG CAP PO ×2 (08:25→20:35)
[2023-06-22] MEDS: Donepezil 5 MG TAB PO (20:35)
[2023-06-22] MEDS: Mirtazapine 15 MG TAB PO (20:35)
[2023-06-22] MEDS: Tamsulosin 0.4 MG CAPCR PO (20:35)
[2023-06-23 03:30] VITALS: BP 120/72; PULSE 78; RESP 18; TEMP 36.7; O2SAT 96
[2023-06-23] MEDS: Levothyroxine 100 MCG TAB PO (05:54)
[2023-06-23 07:45] VITALS: BP 139/85; PULSE 68; RESP 18; TEMP 36.4; O2SAT 99
[2023-06-23] MEDS: Cyanocobalamin 500 MCG TAB 1000 MCG PO (08:32)
[2023-06-23] MEDS: buPROPion-XL 150 MG TABCR PO (08:32)
[2023-06-23] MEDS: Docusate Sodium 100 MG CAP PO ×2 (08:32→20:55)
[2023-06-23] MEDS: Melatonin 3 MG TAB 9 MG PO (20:55)
[2023-06-23] MEDS: Mirtazapine 15 MG TAB PO (20:56)
[2023-06-23] MEDS: Acetaminophen 325 MG TAB PO (20:56)
[2023-06-23] MEDS: QUEtiapine 25 MG TAB 12.5 MG PO (20:56)
[2023-06-23] MEDS: Donepezil 5 MG TAB PO (20:56)
[2023-06-23] MEDS: Tamsulosin 0.4 MG CAPCR PO (20:56)
[2023-06-24] MEDS: Levothyroxine 100 MCG TAB PO (04:55)
[2023-06-24] MEDS: buPROPion-XL 150 MG TABCR PO (08:09)
[2023-06-24] MEDS: Cyanocobalamin 500 MCG TAB 1000 MCG PO (08:09)
[2023-06-24] MEDS: QUEtiapine 25 MG TAB 12.5 MG PO ×2 (08:09→20:31)
[2023-06-24] MEDS: Docusate Sodium 100 MG CAP PO ×2 (08:09→20:31)
[2023-06-24 08:35] VITALS: BP 125/80; PULSE 78; RESP 16; TEMP 36.5; O2SAT 98
[2023-06-24] MEDS: Melatonin 3 MG TAB 9 MG PO (20:31)
[2023-06-24] MEDS: Acetaminophen 325 MG TAB PO (20:31)
[2023-06-24] MEDS: Tamsulosin 0.4 MG CAPCR PO (22:30)
[2023-06-24] MEDS: Mirtazapine 15 MG TAB PO (22:30)
[2023-06-24] MEDS: Donepezil 5 MG TAB PO (22:30)
[2023-06-25 05:16] VITALS: BP 103/71; PULSE 78; RESP 16; TEMP 36.1; O2SAT 99
[2023-06-25] MEDS: Levothyroxine 100 MCG TAB PO (05:35)
[2023-06-25] MEDS: buPROPion-XL 150 MG TABCR PO (09:27)
[2023-06-25] MEDS: Polyethylene Glycol 3350 17 GM PACKET PO (09:27)
[2023-06-25] MEDS: Docusate Sodium 100 MG CAP PO ×3 (09:27→20:01)
[2023-06-25] MEDS: Cyanocobalamin 500 MCG TAB 1000 MCG PO (09:27)
[2023-06-25 11:15] VITALS: BP 110/70; PULSE 70; RESP 18; TEMP 36.1; O2SAT 99
[2023-06-25] MEDS: Tamsulosin 0.4 MG CAPCR PO (20:01)
[2023-06-25] MEDS: Donepezil 5 MG TAB PO (20:01)
[2023-06-25] MEDS: Mirtazapine 15 MG TAB PO (20:01)
[2023-06-25] MEDS: QUEtiapine 25 MG TAB 12.5 MG PO (20:01)
[2023-06-26] MEDS: Levothyroxine 100 MCG TAB PO (05:37)
--- NOTE | 2023-06-26 08:32 | PDOC.CMACT ---
Date of service: 06/26/23 Time of Service: 08:32 Care Management Activity Note Activity Note Text Activity Note Text: Aida remains pleasant in interactions with staff. She had one tough day where she had a moment of agitation; attributed to lack of sleep. Provider adjusted medications and Aida has not had any other behavioral issues, consistently since admission. skilled nursing medicaid is clinically approved; awaiting financial approval and SNF coordination.
[2023-06-26] MEDS: Polyethylene Glycol 3350 17 GM PACKET PO (10:00)
[2023-06-26] MEDS: Cyanocobalamin 500 MCG TAB 1000 MCG PO (10:00)
[2023-06-26] MEDS: Docusate Sodium 100 MG CAP PO ×3 (10:00→20:13)
[2023-06-26] MEDS: buPROPion-XL 150 MG TABCR PO (10:00)
[2023-06-26] MEDS: QUEtiapine 25 MG TAB 12.5 MG PO ×2 (14:38→20:13)
[2023-06-26 19:28] VITALS: BP 132/78; PULSE 132; RESP 18; TEMP 36.5; O2SAT 97
[2023-06-26] MEDS: Acetaminophen 325 MG TAB PO (20:13)
[2023-06-26] MEDS: Mirtazapine 15 MG TAB PO (20:13)
[2023-06-26] MEDS: Donepezil 5 MG TAB PO (20:13)
[2023-06-26] MEDS: Melatonin 3 MG TAB 9 MG PO (20:13)
[2023-06-26] MEDS: Tamsulosin 0.4 MG CAPCR PO (20:13)
[2023-06-27] MEDS: Levothyroxine 100 MCG TAB PO (06:06)
[2023-06-27] MEDS: buPROPion-XL 150 MG TABCR PO (09:16)
[2023-06-27] MEDS: Docusate Sodium 100 MG CAP PO ×2 (09:16→20:46)
[2023-06-27] MEDS: Polyethylene Glycol 3350 17 GM PACKET PO (09:17)
[2023-06-27] MEDS: Cyanocobalamin 500 MCG TAB 1000 MCG PO (09:17)
[2023-06-27] MEDS: QUEtiapine 25 MG TAB 12.5 MG PO ×2 (12:49→20:46)
[2023-06-27] MEDS: Donepezil 5 MG TAB PO (20:46)
[2023-06-27] MEDS: Acetaminophen 325 MG TAB PO (20:46)
[2023-06-27] MEDS: Tamsulosin 0.4 MG CAPCR PO (20:47)
[2023-06-27] MEDS: Mirtazapine 15 MG TAB PO (20:47)
[2023-06-28] MEDS: Levothyroxine 100 MCG TAB PO (05:53)
[2023-06-28] MEDS: Cyanocobalamin 500 MCG TAB 1000 MCG PO (08:06)
[2023-06-28] MEDS: buPROPion-XL 150 MG TABCR PO (08:07)
[2023-06-28] MEDS: Docusate Sodium 100 MG CAP PO ×3 (08:07→21:48)
[2023-06-28] MEDS: Polyethylene Glycol 3350 17 GM PACKET PO (08:07)
[2023-06-28] MEDS: Acetaminophen 325 MG TAB PO (10:47)
[2023-06-28] MEDS: QUEtiapine 25 MG TAB 12.5 MG PO (11:11)
--- NOTE | 2023-06-28 11:13 | NUR.NOTE ---
Nursing Note: pt is tearful and unable to explain why. she is grabbing her head and grimacing. asked pt if she was having a headache and she stated she was. pain medications provided.
[2023-06-28 12:55] VITALS: BP 108/65; PULSE 77; RESP 17; TEMP 36.6; O2SAT 98
[2023-06-28] MEDS: Ketorolac 15 MG/ML VIAL IVP (13:04)
[2023-06-28] MEDS: Mirtazapine 15 MG TAB PO (21:48)
[2023-06-28] MEDS: Tamsulosin 0.4 MG CAPCR PO (21:48)
[2023-06-28] MEDS: Donepezil 5 MG TAB PO (21:48)
[2023-06-29] MEDS: Levothyroxine 100 MCG TAB PO (05:38)
[2023-06-29 08:52] VITALS: BP 170/90; PULSE 90; RESP 17; TEMP 36; O2SAT 97
[2023-06-29] MEDS: buPROPion-XL 150 MG TABCR PO (09:15)
[2023-06-29] MEDS: Docusate Sodium 100 MG CAP PO ×3 (09:15→19:46)
[2023-06-29] MEDS: QUEtiapine 25 MG TAB 12.5 MG PO ×2 (09:15→19:45)
[2023-06-29] MEDS: Polyethylene Glycol 3350 17 GM PACKET PO (09:15)
[2023-06-29] MEDS: Cyanocobalamin 500 MCG TAB 1000 MCG PO (09:15)
[2023-06-29] MEDS: Bisacodyl 5 MG TABEC PO (15:45)
[2023-06-29] MEDS: Melatonin 3 MG TAB 9 MG PO (19:45)
[2023-06-29] MEDS: Donepezil 5 MG TAB PO (21:16)
[2023-06-29] MEDS: Tamsulosin 0.4 MG CAPCR PO (21:16)
[2023-06-29] MEDS: Mirtazapine 15 MG TAB PO (21:16)
[2023-06-30] MEDS: Levothyroxine 100 MCG TAB PO (05:23)
[2023-06-30] MEDS: Polyethylene Glycol 3350 17 GM PACKET PO (07:19)
[2023-06-30] MEDS: buPROPion-XL 150 MG TABCR PO (07:20)
[2023-06-30] MEDS: Cyanocobalamin 500 MCG TAB 1000 MCG PO (07:20)
[2023-06-30] MEDS: Bisacodyl 5 MG TABEC PO (07:20)
[2023-06-30] MEDS: Docusate Sodium 100 MG CAP PO ×2 (07:20→23:13)
[2023-06-30] MEDS: QUEtiapine 25 MG TAB 12.5 MG PO ×2 (09:09→23:13)
[2023-06-30] MEDS: LORazepam 1 MG TAB PO (09:33)
[2023-06-30 12:27] VITALS: BP 158/77; PULSE 70; RESP 16; TEMP 36.2; O2SAT 99
--- NOTE | 2023-06-30 17:32 | NUR.NOTE ---
Nursing Note: continues to set off bed alarm every 2-10 minutes. earlier in the shift, medications were provided to assist with relaxing her that did not have much effect. pt was difficult to reorient.
[2023-06-30] MEDS: Donepezil 5 MG TAB PO (23:13)
[2023-06-30] MEDS: Mirtazapine 15 MG TAB PO (23:13)
[2023-06-30] MEDS: Melatonin 3 MG TAB 9 MG PO (23:13)
[2023-06-30] MEDS: Tamsulosin 0.4 MG CAPCR PO (23:14)
[2023-07-01] MEDS: Levothyroxine 100 MCG TAB PO (05:30)
[2023-07-01] MEDS: buPROPion-XL 150 MG TABCR PO (08:20)
[2023-07-01] MEDS: Docusate Sodium 100 MG CAP PO ×3 (08:20→21:36)
[2023-07-01] MEDS: Cyanocobalamin 500 MCG TAB 1000 MCG PO (08:20)
[2023-07-01] MEDS: Polyethylene Glycol 3350 17 GM PACKET PO (08:21)
[2023-07-01] MEDS: OLANZapine 10 MG VIAL 5 MG IM (08:21)
[2023-07-01 19:09] VITALS: BP 149/92; PULSE 103; RESP 16; TEMP 37.3; O2SAT 100
[2023-07-01] MEDS: Tamsulosin 0.4 MG CAPCR PO (21:35)
[2023-07-01] MEDS: Donepezil 5 MG TAB PO (21:36)
[2023-07-01] MEDS: Melatonin 3 MG TAB 9 MG PO (21:36)
[2023-07-01] MEDS: Mirtazapine 15 MG TAB PO (21:36)
[2023-07-01] MEDS: QUEtiapine 25 MG TAB 12.5 MG PO (21:36)
[2023-07-02] MEDS: Levothyroxine 100 MCG TAB PO (05:33)
[2023-07-02] MEDS: buPROPion-XL 150 MG TABCR PO (07:58)
[2023-07-02] MEDS: Polyethylene Glycol 3350 17 GM PACKET PO (07:58)
[2023-07-02] MEDS: Cyanocobalamin 500 MCG TAB 1000 MCG PO (07:59)
[2023-07-02] MEDS: Docusate Sodium 100 MG CAP PO ×3 (07:59→21:15)
[2023-07-02 09:04] VITALS: BP 117/80; PULSE 82; RESP 18; TEMP 36.5; O2SAT 99
[2023-07-02 20:17] VITALS: BP 133/80; PULSE 94; RESP 16; TEMP 36.3; O2SAT 97
[2023-07-02] MEDS: Donepezil 5 MG TAB PO (21:15)
[2023-07-02] MEDS: Tamsulosin 0.4 MG CAPCR PO (21:15)
[2023-07-02] MEDS: Mirtazapine 15 MG TAB PO (21:15)
[2023-07-03] MEDS: Levothyroxine 100 MCG TAB PO (06:16)
[2023-07-03] MEDS: Docusate Sodium 100 MG CAP PO ×3 (08:28→21:01)
[2023-07-03] MEDS: buPROPion-XL 150 MG TABCR PO (08:28)
[2023-07-03] MEDS: Polyethylene Glycol 3350 17 GM PACKET PO (08:29)
[2023-07-03] MEDS: Cyanocobalamin 500 MCG TAB 1000 MCG PO (08:29)
[2023-07-03 09:19] VITALS: BP 107/73; PULSE 85; RESP 18; TEMP 36.8; O2SAT 100
--- NOTE | 2023-07-03 11:04 | PDOC.CMACT ---
Date of service: 07/03/23 Time of Service: 11:04 Care Management Activity Note Activity Note Text Activity Note Text: Aida remains pleasant in interactions with staff. She enjoys sitting out at the nursing station at times, and enjoys ambulating through the hallways. 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
[2023-07-03] MEDS: Donepezil 5 MG TAB PO (21:00)
[2023-07-03] MEDS: Melatonin 3 MG TAB 9 MG PO (21:00)
[2023-07-03] MEDS: Tamsulosin 0.4 MG CAPCR PO (21:01)
[2023-07-03] MEDS: Mirtazapine 15 MG TAB PO (21:01)
[2023-07-03] MEDS: QUEtiapine 25 MG TAB 12.5 MG PO (23:29)
[2023-07-04] MEDS: Levothyroxine 100 MCG TAB PO (06:59)
[2023-07-04] MEDS: buPROPion-XL 150 MG TABCR PO (09:39)
[2023-07-04 11:00] VITALS: BP 112/78; PULSE 83; RESP 18; TEMP 35.9; O2SAT 99
[2023-07-04] MEDS: Docusate Sodium 100 MG CAP PO ×2 (14:11→18:33)
[2023-07-04] MEDS: Mirtazapine 15 MG TAB PO (19:14)
[2023-07-04] MEDS: Tamsulosin 0.4 MG CAPCR PO (19:14)
[2023-07-04] MEDS: Donepezil 5 MG TAB PO (19:14)
[2023-07-05] MEDS: QUEtiapine 25 MG TAB 12.5 MG PO (03:12)
[2023-07-05] MEDS: Levothyroxine 100 MCG TAB PO (05:36)
[2023-07-05 07:33] VITALS: BP 145/84; PULSE 77; RESP 16; TEMP 35.9; O2SAT 100
[2023-07-05] MEDS: Polyethylene Glycol 3350 17 GM PACKET PO (07:35)
[2023-07-05] MEDS: Docusate Sodium 100 MG CAP PO (07:35)
[2023-07-05] MEDS: buPROPion-XL 150 MG TABCR PO (07:35)
[2023-07-05] MEDS: Cyanocobalamin 500 MCG TAB 1000 MCG PO (07:35)
[2023-07-05 20:45] VITALS: BP 116/77; PULSE 99; RESP 16; TEMP 37.5; O2SAT 98
[2023-07-05] MEDS: Donepezil 5 MG TAB PO (21:04)
[2023-07-05] MEDS: Tamsulosin 0.4 MG CAPCR PO (21:05)
[2023-07-05] MEDS: Mirtazapine 15 MG TAB PO (21:05)
[2023-07-05] MEDS: Acetaminophen 325 MG TAB PO (21:06)
[2023-07-06] MEDS: Levothyroxine 100 MCG TAB PO (05:50)
[2023-07-06] MEDS: Polyethylene Glycol 3350 17 GM PACKET PO (08:36)
[2023-07-06] MEDS: buPROPion-XL 150 MG TABCR PO (08:36)
[2023-07-06] MEDS: Docusate Sodium 100 MG CAP PO ×3 (08:36→21:07)
[2023-07-06] MEDS: Cyanocobalamin 500 MCG TAB 1000 MCG PO (08:36)
[2023-07-06 08:54] VITALS: BP 127/81; PULSE 85; RESP 16; TEMP 36.9; O2SAT 100
[2023-07-06 15:03] VITALS: BP 115/75; PULSE 89; RESP 16; TEMP 37.1; O2SAT 100
[2023-07-06 20:33] VITALS: BP 130/81; PULSE 104; RESP 16; TEMP 37.5; O2SAT 97
[2023-07-06] MEDS: Tamsulosin 0.4 MG CAPCR PO (21:08)
[2023-07-06] MEDS: Donepezil 5 MG TAB PO (21:08)
[2023-07-06] MEDS: Mirtazapine 15 MG TAB PO (21:08)
[2023-07-07] MEDS: Levothyroxine 100 MCG TAB PO (05:49)
[2023-07-07] MEDS: buPROPion-XL 150 MG TABCR PO (08:32)
[2023-07-07] MEDS: Docusate Sodium 100 MG CAP PO ×3 (08:35→19:27)
[2023-07-07] MEDS: Cyanocobalamin 500 MCG TAB 1000 MCG PO (08:35)
[2023-07-07] MEDS: Polyethylene Glycol 3350 17 GM PACKET PO (08:35)
[2023-07-07 15:00] VITALS: BP 118/78; PULSE 79; RESP 18; TEMP 37; O2SAT 100
[2023-07-07] MEDS: Tamsulosin 0.4 MG CAPCR PO (21:07)
[2023-07-07] MEDS: Donepezil 5 MG TAB PO (21:08)
[2023-07-07] MEDS: Mirtazapine 15 MG TAB PO (21:08)
[2023-07-08] MEDS: Levothyroxine 100 MCG TAB PO (05:32)
[2023-07-08] MEDS: buPROPion-XL 150 MG TABCR PO (08:07)
[2023-07-08] MEDS: Cyanocobalamin 500 MCG TAB 1000 MCG PO (08:07)
[2023-07-08] MEDS: Docusate Sodium 100 MG CAP PO ×3 (08:08→21:06)
[2023-07-08 20:54] VITALS: BP 117/75; PULSE 92; RESP 16; TEMP 37.6; O2SAT 98
[2023-07-08] MEDS: Melatonin 3 MG TAB 9 MG PO (21:05)
[2023-07-08] MEDS: Donepezil 5 MG TAB PO (21:06)
[2023-07-08] MEDS: Tamsulosin 0.4 MG CAPCR PO (21:06)
[2023-07-08] MEDS: Mirtazapine 15 MG TAB PO (21:07)
[2023-07-09] MEDS: Levothyroxine 100 MCG TAB PO (05:59)
[2023-07-09 07:28] VITALS: BP 110/74; PULSE 80; RESP 16; TEMP 36.6; O2SAT 98
[2023-07-09] MEDS: Cyanocobalamin 500 MCG TAB 1000 MCG PO (09:07)
[2023-07-09] MEDS: buPROPion-XL 150 MG TABCR PO (09:07)
[2023-07-09] MEDS: Docusate Sodium 100 MG CAP PO ×2 (09:08→14:49)
[2023-07-09 09:10] VITALS: BP 108/73; PULSE 82; RESP 18; TEMP 36.4; O2SAT 100
[2023-07-09] MEDS: Polyethylene Glycol 3350 17 GM PACKET PO (09:10)
[2023-07-09] MEDS: Bisacodyl 10 MG SUPP PR (14:48)
[2023-07-09] MEDS: Bisacodyl 5 MG TABEC PO (14:49)
--- NOTE | 2023-07-09 17:12 | CMACTNOTE_ITS ---
Date of service: 07/09/23 Time of Service: 17:12 Care Management Activity Note Activity Note Text Activity Note Text: Aida enjoys walking around in the halls, although she prefers to stay close to her room. She interacts with staff, and has been very pleasant and appropriate. She appears comfortable at [facility]. She has been offered activities, including an activity blanket from the swing bed activity cart. She also enjoys music therapy, when offered. Aida's fdc [facility] application has been clinically approved, awaiting financial determination. SNF/LTC placement coordination needed once a payer source is determined.
[2023-07-09] MEDS: Melatonin 3 MG TAB 9 MG PO (21:24)
[2023-07-09] MEDS: Mirtazapine 15 MG TAB PO (21:24)
[2023-07-09] MEDS: Tamsulosin 0.4 MG CAPCR PO (21:25)
[2023-07-09] MEDS: QUEtiapine 25 MG TAB 12.5 MG PO (21:25)
[2023-07-09] MEDS: Donepezil 5 MG TAB PO (21:25)
[2023-07-10] MEDS: Levothyroxine 100 MCG TAB PO (06:20)
[2023-07-10] MEDS: buPROPion-XL 150 MG TABCR PO (09:00)
[2023-07-10] MEDS: Cyanocobalamin 500 MCG TAB 1000 MCG PO (09:00)
[2023-07-10] MEDS: Docusate Sodium 100 MG CAP PO (09:00)
[2023-07-10 09:34] VITALS: BP 107/67; PULSE 90; RESP 18; TEMP 36.6; O2SAT 99
--- NOTE | 2023-07-10 14:20 | PDOC.CMPRO ---
Date of service: 07/10/23 Time of Service: 14:20 Care Management Progress Note Progress Note Text Progress Note Text: Still awaiting financial approval for LTM. Patient has already been approved clinically. Patients nisha Dewey is supporting this process and last spoke with LTM on 07/07/23. He is currently in process of sending in her financial paperwork and is planning on doing so within the next few days. He will notify CM with updates, when available.
[2023-07-10] MEDS: Tamsulosin 0.4 MG CAPCR PO (21:26)
[2023-07-10] MEDS: Melatonin 3 MG TAB 9 MG PO (21:26)
[2023-07-10] MEDS: Donepezil 5 MG TAB PO (21:27)
[2023-07-10] MEDS: Mirtazapine 15 MG TAB PO (21:27)
[2023-07-10] MEDS: QUEtiapine 25 MG TAB 12.5 MG PO (21:27)
[2023-07-11 00:33] VITALS: BP 106/70; PULSE 92; RESP 17; TEMP 36.6; O2SAT 98
[2023-07-11] MEDS: Levothyroxine 100 MCG TAB PO (05:56)
[2023-07-11 07:42] VITALS: BP 146/75; PULSE 73; RESP 18; TEMP 35.9; O2SAT 99
[2023-07-11] MEDS: Cyanocobalamin 500 MCG TAB 1000 MCG PO (09:01)
[2023-07-11] MEDS: Docusate Sodium 100 MG CAP PO ×2 (09:01→14:50)
[2023-07-11] MEDS: buPROPion-XL 150 MG TABCR PO (09:01)
[2023-07-11] MEDS: Tamsulosin 0.4 MG CAPCR PO (21:06)
[2023-07-11] MEDS: Mirtazapine 15 MG TAB PO (21:06)
[2023-07-11] MEDS: Melatonin 3 MG TAB 9 MG PO (21:06)
[2023-07-11] MEDS: Donepezil 5 MG TAB PO (21:06)
[2023-07-11] MEDS: QUEtiapine 25 MG TAB 12.5 MG PO (21:07)
[2023-07-12 07:32] VITALS: BP 137/84; PULSE 78; RESP 16; TEMP 35.8; O2SAT 100
[2023-07-12] MEDS: Polyethylene Glycol 3350 17 GM PACKET PO (08:26)
[2023-07-12] MEDS: buPROPion-XL 150 MG TABCR PO (08:26)
[2023-07-12] MEDS: Cyanocobalamin 500 MCG TAB 1000 MCG PO (08:26)
[2023-07-12] MEDS: Docusate Sodium 100 MG CAP PO ×3 (08:27→19:16)
[2023-07-12] MEDS: Melatonin 3 MG TAB 9 MG PO (19:14)
[2023-07-12] MEDS: Mirtazapine 15 MG TAB PO (19:14)
[2023-07-12] MEDS: Donepezil 5 MG TAB PO (19:14)
[2023-07-12] MEDS: QUEtiapine 25 MG TAB 12.5 MG PO (19:15)
[2023-07-12] MEDS: Tamsulosin 0.4 MG CAPCR PO (19:15)
[2023-07-13] MEDS: Levothyroxine 100 MCG TAB PO (06:43)
[2023-07-13] MEDS: buPROPion-XL 150 MG TABCR PO (07:20)
[2023-07-13] MEDS: Cyanocobalamin 500 MCG TAB 1000 MCG PO (07:20)
[2023-07-13] MEDS: Docusate Sodium 100 MG CAP PO ×2 (07:20→20:54)
[2023-07-13 07:32] VITALS: BP 133/75; PULSE 76; RESP 16; TEMP 36; O2SAT 99
[2023-07-13] MEDS: Donepezil 5 MG TAB PO (20:53)
[2023-07-13] MEDS: Melatonin 3 MG TAB 9 MG PO (20:54)
[2023-07-13] MEDS: Tamsulosin 0.4 MG CAPCR PO (20:54)
[2023-07-13] MEDS: Mirtazapine 15 MG TAB PO (20:54)
[2023-07-14] MEDS: Levothyroxine 100 MCG TAB PO (05:30)
[2023-07-14 07:23] VITALS: BP 120/78; PULSE 83; RESP 16; TEMP 36.5; O2SAT 99
[2023-07-14] MEDS: Cyanocobalamin 500 MCG TAB 1000 MCG PO (07:27)
[2023-07-14] MEDS: Polyethylene Glycol 3350 17 GM PACKET PO (07:27)
[2023-07-14] MEDS: buPROPion-XL 150 MG TABCR PO (07:27)
[2023-07-14] MEDS: Docusate Sodium 100 MG CAP PO ×3 (07:27→21:01)
[2023-07-14] MEDS: OLANZapine 10 MG VIAL 5 MG IM (19:00)
[2023-07-14] MEDS: Water,Injection,Sterile 10 ML VIAL (19:01)
[2023-07-14] MEDS: Mirtazapine 15 MG TAB PO (21:01)
[2023-07-14] MEDS: Melatonin 3 MG TAB 9 MG PO (21:01)
[2023-07-14] MEDS: Donepezil 5 MG TAB PO (21:01)
[2023-07-14] MEDS: Tamsulosin 0.4 MG CAPCR PO (21:01)
[2023-07-15 08:44] VITALS: BP 115/77; PULSE 85; TEMP 36.3; O2SAT 97
[2023-07-15] MEDS: Docusate Sodium 100 MG CAP PO ×2 (08:49→19:38)
[2023-07-15] MEDS: buPROPion-XL 150 MG TABCR PO (08:49)
[2023-07-15] MEDS: Cyanocobalamin 500 MCG TAB 1000 MCG PO (08:49)
[2023-07-15] MEDS: Levothyroxine 100 MCG TAB PO (08:49)
[2023-07-15] MEDS: Polyethylene Glycol 3350 17 GM PACKET PO (08:50)
--- NOTE | 2023-07-15 15:49 | CMPROGNOTE_ITS ---
Date of service: 07/15/23 Time of Service: 15:49 Care Management Progress Note Progress Note Text Progress Note Text: S/O: Aida remains at [facility] in SWB2 status while awaiting long-term medicaid and disposition. Clinically Aida is approved for LTM, but still awaiting financial approval which patients son agrees tp submit financial information. [facility] is reviewing and may be an option for placement, which would be self pay until LTM is active. Willian reports that he is awaiting a return call. A: Aida is a 63 year old female admitted to [facility] on 06/06/23 in SWB1 for dementia, deconditioning. P: Aida remains in B 2, working with PT for stability and strengthening. Palliative care consulted to discuss goals of care. Conor, her son, is also her DPOA and supports her decision making. Aida will remain at [facility] until appropriate placement is found. Transportation to be determined by disposition. CM will continue to follow.
[2023-07-15] MEDS: QUEtiapine 25 MG TAB 12.5 MG PO (19:38)
[2023-07-15] MEDS: Mirtazapine 15 MG TAB PO (21:02)
[2023-07-15] MEDS: Tamsulosin 0.4 MG CAPCR PO (21:02)
[2023-07-15] MEDS: Donepezil 5 MG TAB PO (21:02)
[2023-07-16] MEDS: Polyethylene Glycol 3350 17 GM PACKET PO (08:31)
[2023-07-16] MEDS: Cyanocobalamin 500 MCG TAB 1000 MCG PO (08:31)
[2023-07-16] MEDS: buPROPion-XL 150 MG TABCR PO (08:31)
[2023-07-16] MEDS: Docusate Sodium 100 MG CAP PO ×2 (08:31→21:09)
[2023-07-16 09:15] LABS: TSH (W/Ref FT4) 2.49 uIU/mL (0.36-3.74)
--- NOTE | 2023-07-16 10:50 | PDOC.CMACT ---
Date of service: 07/16/23 Time of Service: 10:50 Care Management Activity Note Activity Note Text Activity Note Text: Aida remains pleasant in interactions with staff. She appears to be sleeping more during the day and is reportedly awake at night. Nursing reported 1 night of agitation, which required PRN medication, which radha was attributed to lack of sleep. Aida enjoys walking in the ferrer and stays close to her room, she colors and visits with staff. She established a routine of taking her shoes off before entering her room, by choice. 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 continues to support life enrichment for Aida during her prolonged hospitalization.
[2023-07-16 11:39] VITALS: BP 134/82; PULSE 84; RESP 16; TEMP 36.8; O2SAT 99
[2023-07-16] MEDS: QUEtiapine 25 MG TAB 12.5 MG PO (21:09)
[2023-07-16] MEDS: Mirtazapine 15 MG TAB PO (21:09)
[2023-07-16] MEDS: Tamsulosin 0.4 MG CAPCR PO (21:09)
[2023-07-16] MEDS: Donepezil 5 MG TAB PO (21:09)
[2023-07-17] MEDS: Polyethylene Glycol 3350 17 GM PACKET PO (07:16)
[2023-07-17] MEDS: Docusate Sodium 100 MG CAP PO ×3 (07:16→21:02)
[2023-07-17] MEDS: buPROPion-XL 150 MG TABCR PO (07:16)
[2023-07-17] MEDS: Cyanocobalamin 500 MCG TAB 1000 MCG PO (07:16)
[2023-07-17 13:20] VITALS: BP 136/92; PULSE 76; RESP 16; TEMP 36.3; O2SAT 99
[2023-07-17 13:55] LABS: Source Nasal/Nares
[2023-07-17 14:45] LABS: COVID-19 PCR Negative (Negative)
[2023-07-17] MEDS: Donepezil 5 MG TAB PO (21:02)
[2023-07-17] MEDS: QUEtiapine 25 MG TAB 12.5 MG PO (21:02)
[2023-07-17] MEDS: Tamsulosin 0.4 MG CAPCR PO (21:03)
[2023-07-17] MEDS: Melatonin 3 MG TAB 9 MG PO (21:03)
[2023-07-17] MEDS: Mirtazapine 15 MG TAB PO (21:03)
[2023-07-18] MEDS: Levothyroxine 100 MCG TAB PO (06:37)
[2023-07-18] MEDS: Cyanocobalamin 500 MCG TAB 1000 MCG PO (09:42)
[2023-07-18] MEDS: Polyethylene Glycol 3350 17 GM PACKET PO (09:42)
[2023-07-18] MEDS: Docusate Sodium 100 MG CAP PO ×3 (09:42→21:35)
[2023-07-18] MEDS: buPROPion-XL 150 MG TABCR PO (09:42)
--- NOTE | 2023-07-18 10:37 | W.PM.PROGNOT ---
Date of Service Date of service: 07/18/23 Time of Service: 10:37 Assessment and Plan Assessment and plan (1) UTI (urinary tract infection): Status: Resolved (2) Alzheimer's dementia with behavioral disturbance: Status: Chronic Assessment and plan: continue her Aricept, duloxetine, and Wellbutrin. CM to assist family (son lives out of state) in finding a Alzheimers SNF. Patient does not need constant sitter but does require close monitoring by nursing as she tends to wander. Use of bed and chair alarms strongly advised. Mirtazipine at night and seroquel now scheduled BID, she has had some trouble sleeping, Ramelteon added to help with sleep after consultation with pharmacy and Dr Villagomez, first dose last night (07/17), nursing reports it helped, will continue. She has not had any untoward behavior. (3) Elevated serum free T4 level: Status: Acute Assessment and plan: Continue 100 mcg daily, recheck in a few weeks (4) Hypothyroidism: Assessment and plan: as above (5) Discharge planning issues: Status: Acute Assessment and plan: palliative care and case management following. referrals placed. discussed with Dr. Villagomez (6) Hyponatremia: Status: Acute Assessment and plan: 07/19 - Sodium found to be 130 - limited free water to 1200ml/24h - will repeat labs in 3 d. Subjective Subjective Patient reports: no new complaints Interval history since last seen: Patient not very conversant, although is pleasant, she wonders around the room alot and appears bored, understandably. She has no physical complaints. She is eating 100% of her meals and drinking plenty of fluids. Exam Narrative Exam Narrative: General she appears comfortable and is in no acute distress, walking around the room. HEENT pupils are equal round and reactive to light, no conjunctival pallor, no scleral icterus posterior pharynx clear with no erythema or exudate Neck supple, no lymphadenopathy or thyromegaly, carotid pulses normal and symmetric with no bruits Chest normal breath sounds with no crackles or wheezes Heart rhythm is regular, no gallop, no JVD, no murmur Abdomen soft, nontender, bowel sounds normal, no organomegaly or masses Skin no rash, normal turgor Extremeties: no edema, normal gait Neurologic no tremor, hyperreflexic both upper extremities with no focal motor or sensory deficits Objective Last Vital Signs Temp 36.3 C L 07/17/23 13:20 Pulse 76 07/17/23 13:20 Resp 16 07/17/23 13:20 BP 136/92 H 07/17/23 13:20 Pulse Ox 99 07/17/23 13:20 Laboratory Results - last 24 hr 07/17/23 13:40 COVID-19 Source Nasal/Nares SARS-CoV-2 (PCR) Negative Time Spent with Patient Time Spent with Patient: 25-34 minutes Time was spent: preparing to see the patient(eg.review tests), ordering medications,tests, procedures, referring, communicating with other health workforce investment act career manager, indepentently interpreting results, counseling the patient and care coordination
[2023-07-18] MEDS: QUEtiapine 25 MG TAB 12.5 MG PO ×2 (15:33→21:35)
[2023-07-18] MEDS: Donepezil 5 MG TAB PO (21:35)
[2023-07-18] MEDS: Tamsulosin 0.4 MG CAPCR PO (21:36)
[2023-07-18] MEDS: Mirtazapine 15 MG TAB PO (21:36)
[2023-07-19 07:02] LABS: Abs Immature Grans 0.05 10^3/uL (0.0-0.06); Absolute Basophil Count 0.06 10^3/uL (0.0-0.2); Absolute Eosinophil Count 0.39 10^3/uL (0.0-0.7); Absolute Monocyte Count 0.96 10^3/uL (0.1-0.8); Absolute Neutrophil Count 5.72 10^3/uL (1.2-6.7); Basophils % 0.7; Eosinophils % 4.2; HCT 33.5 % (36.0-46.0); HGB 11.5 g/dL (11.2-15.7); Immature Grans % 0.5; Lymphocytes % 21.8; MCH 29.8 pg (27.0-33.0); MCHC 34.3 % (32.0-36.0); MCV 87 fL (80-95); MPV 9.9 fL (8.0-11.0); Monocytes % 10.5; Neutrophils % 62.3; Platelet Count 248 10^3/uL (130-400); RBC 3.86 10^6/uL (3.93-5.22); RDW 13.4 % (11.7-14.6); RDW-SD 42.5 fL; WBC 9.18 10^3/uL (4.4-10.8)
[2023-07-19 07:30] LABS: BUN 12 mg/dL (7-18); CREATININE 0.7 mg/dL (0.55-1.02); Calcium 9.5 mg/dL (8.5-10.1); Chloride 97 mmol/L (98-107); Estimated GFR 97.12 (mL/min/1.73m2); Glucose 82 mg/dL (74-106); Potassium 3.5 mmol/L (3.5-5.1); Sodium 130 mmol/L (136-145)
[2023-07-19] MEDS: buPROPion-XL 150 MG TABCR PO (09:02)
[2023-07-19] MEDS: Levothyroxine 100 MCG TAB PO (09:03)
[2023-07-19] MEDS: Docusate Sodium 100 MG CAP PO ×3 (09:03→20:07)
[2023-07-19] MEDS: Cyanocobalamin 500 MCG TAB 1000 MCG PO (09:03)
[2023-07-19] MEDS: QUEtiapine 25 MG TAB 12.5 MG PO ×2 (09:03→20:07)
[2023-07-19] MEDS: Polyethylene Glycol 3350 17 GM PACKET PO (09:26)
--- NOTE | 2023-07-19 15:24 | W.PM.PROGNOT ---
Objective Last Vital Signs Temp 36.3 C L 07/17/23 13:20 Pulse 76 07/17/23 13:20 Resp 16 07/17/23 13:20 BP 136/92 H 07/17/23 13:20 Pulse Ox 99 07/17/23 13:20 Laboratory Results - last 24 hr 07/19/23 07/19/23 05:47 05:47 WBC 9.18 RBC 3.86 L Hgb 11.5 Hct 33.5 L MCV 87 MCH 29.8 MCHC 34.3 RDW 13.4 Plt Count 248 MPV 9.9 Immature Gran % 0.5 Neutrophils % 62.3 Lymphocytes % 21.8 Monocytes % 10.5 Eosinophils % 4.2 Basophils % 0.7 Nucleated RBC % 0.0 Absolute Neutrophils 5.72 Absolute Lymphocytes 2.00 Absolute Monocytes 0.96 H Absolute Eosinophils 0.39 Absolute Basophils 0.06 Sodium 130 L Potassium 3.5 Chloride 97 L Carbon Dioxide 25.0 Anion Gap 8.0 BUN 12 Creatinine 0.7 Est GFR (CKD-EPI 2020) 97.12 Glucose 82 Calcium 9.5 Magnesium 2.0
[2023-07-19] MEDS: Melatonin 3 MG TAB 9 MG PO (20:06)
[2023-07-19] MEDS: Donepezil 5 MG TAB PO (20:06)
[2023-07-19] MEDS: Mirtazapine 15 MG TAB PO (20:07)
[2023-07-19] MEDS: Tamsulosin 0.4 MG CAPCR PO (20:07)
[2023-07-20] MEDS: Levothyroxine 100 MCG TAB PO (06:48)
[2023-07-20 07:30] VITALS: BP 136/82; PULSE 76; RESP 18; TEMP 36; O2SAT 99
[2023-07-20] MEDS: Cyanocobalamin 500 MCG TAB 1000 MCG PO (07:42)
[2023-07-20] MEDS: Docusate Sodium 100 MG CAP PO ×2 (07:42→20:12)
[2023-07-20] MEDS: QUEtiapine 25 MG TAB 12.5 MG PO ×2 (07:42→20:12)
[2023-07-20] MEDS: Polyethylene Glycol 3350 17 GM PACKET PO (07:42)
[2023-07-20] MEDS: buPROPion-XL 150 MG TABCR PO (07:42)
[2023-07-20] MEDS: Mirtazapine 15 MG TAB PO (20:12)
[2023-07-20] MEDS: Tamsulosin 0.4 MG CAPCR PO (20:12)
[2023-07-20] MEDS: Donepezil 5 MG TAB PO (20:12)
[2023-07-21] MEDS: Levothyroxine 100 MCG TAB PO (05:19)
[2023-07-21] MEDS: Cyanocobalamin 500 MCG TAB 1000 MCG PO (09:10)
[2023-07-21] MEDS: buPROPion-XL 150 MG TABCR PO (09:10)
[2023-07-21] MEDS: QUEtiapine 25 MG TAB 12.5 MG PO ×2 (09:10→19:30)
[2023-07-21] MEDS: Docusate Sodium 100 MG CAP PO ×2 (09:10→19:30)
[2023-07-21] MEDS: Polyethylene Glycol 3350 17 GM PACKET PO (09:26)
[2023-07-21 10:20] VITALS: BP 113/59; PULSE 79; RESP 18; TEMP 36.9; O2SAT 100
--- NOTE | 2023-07-21 13:25 | PDOC.CMPRO ---
Date of service: 07/21/23 Time of Service: 13:27 Care Management Progress Note Progress Note Text Progress Note Text: Aida's son Willian submitted the requested financial forms to LTM last week. Aida has a potential bed offer at [facility] which will likely be self pay until her LTM is approved. Willian was planning on doing a walk through of the facility yesterday but wasn't able to make it because he wasn't feeling well. He is going to try again tomorrow. He will notify CM with updates, when available.?
[2023-07-21] MEDS: Tamsulosin 0.4 MG CAPCR PO (20:28)
[2023-07-21] MEDS: Mirtazapine 15 MG TAB PO (20:28)
[2023-07-21] MEDS: Donepezil 5 MG TAB PO (20:28)
[2023-07-22 06:54] LABS: Anion Gap 5.5 mmol/L (3-11); BUN 11 mg/dL (7-18); CO2 28.5 mmol/L (21.0-32.0); CREATININE 0.8 mg/dL (0.55-1.02); Calcium 9.9 mg/dL (8.5-10.1); Chloride 107 mmol/L (98-107); Estimated GFR 82.74 (mL/min/1.73m2); Glucose 83 mg/dL (74-106); Potassium 4.1 mmol/L (3.5-5.1); Sodium 141 mmol/L (136-145)
[2023-07-22] MEDS: Levothyroxine 100 MCG TAB PO (07:06)
[2023-07-22] MEDS: buPROPion-XL 150 MG TABCR PO (07:37)
[2023-07-22] MEDS: Cyanocobalamin 500 MCG TAB 1000 MCG PO (07:37)
[2023-07-22] MEDS: Docusate Sodium 100 MG CAP PO ×2 (07:37→19:59)
[2023-07-22] MEDS: QUEtiapine 25 MG TAB 12.5 MG PO ×2 (07:37→19:59)
[2023-07-22] MEDS: Polyethylene Glycol 3350 17 GM PACKET PO (07:37)
[2023-07-22 07:59] VITALS: BP 141/74; PULSE 66; RESP 16; TEMP 36.4
--- NOTE | 2023-07-22 13:53 | CMACTNOTE_ITS ---
Date of service: 07/22/23 Time of Service: 13:53 Care Management Activity Note Activity Note Text Activity Note Text: Aida remains pleasant in interactions with staff.? Aida enjoys walking in the ferrer and stays close to her room, she colors and visits with staff. She established a routine of taking her shoes off before entering her room, by choice. CM continues to support life enrichment for Aida during her prolonged hospitalization. 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 Pts son is visiting the facility today and will update CM this afternoon once he accepts. RIVAS will hien cha.
--- NOTE | 2023-07-22 14:01 | PDOC.CMPRO ---
Date of service: 07/22/23 Time of Service: 14:01 Care Management Progress Note Progress Note Text Progress Note Text: S/O: Aida remains at [facility] in SWB2 status, her group home medicaid has been approved and her bed offer at [facility] on Thursday, was retracted today due to concerns with her being placed in level 3 care. SNF referrals are being sent. CM will continue to support patient and her discharge planning considerations. ? ? A: Aida is a 63 year old female admitted to [facility] on 06/06/23 in SWB1 for dementia, deconditioning. P: Aida remains in SWB 2 while awaiting salvage determiner placement. LTM has been approved. SNF referrals are pending. Conor, her son, is also her DPOA and supports her decision making. Transportation to be determined by disposition. CM will continue to follow.
[2023-07-22] MEDS: Melatonin 3 MG TAB 9 MG PO (19:59)
[2023-07-22] MEDS: Tamsulosin 0.4 MG CAPCR PO (19:59)
[2023-07-22] MEDS: Donepezil 5 MG TAB PO (19:59)
[2023-07-22] MEDS: Mirtazapine 15 MG TAB PO (19:59)
[2023-07-23] MEDS: Levothyroxine 100 MCG TAB PO (05:20)
[2023-07-23] MEDS: Cyanocobalamin 500 MCG TAB 1000 MCG PO (09:02)
[2023-07-23] MEDS: Docusate Sodium 100 MG CAP PO ×2 (09:02→21:14)
[2023-07-23] MEDS: Polyethylene Glycol 3350 17 GM PACKET PO (09:03)
[2023-07-23] MEDS: buPROPion-XL 150 MG TABCR PO (09:03)
[2023-07-23] MEDS: QUEtiapine 25 MG TAB 12.5 MG PO (09:03)
--- NOTE | 2023-07-23 10:08 | NUR.NOTE ---
Nursing Note: pt refused this nurses first attempt at an assessment this morning @ 0900. pt yelled at this nurse just stop, get out nurse stopped assessment and walked out of room. pt was then seen pacing and removing items from room by placing in the ferrer.
--- NOTE | 2023-07-23 11:26 | NUR.NOTE ---
Nursing Note: unable to preform a complete assessment of pt this morning d/t pt refusing and stating get out
--- NOTE | 2023-07-23 13:42 | NUR.NOTE ---
Nursing Note: pt refused 1400 medication while this nurse offered the 1400 medication to the pt the pt grabbed this nurse by the wrist and yelled/stated at this nurse they are in charge this nurse was able to leave the pts room safely, with no harm resulting in pt or nurse
[2023-07-23] MEDS: QUEtiapine 25 MG TAB PO (17:38)
[2023-07-23] MEDS: Tamsulosin 0.4 MG CAPCR PO (21:14)
[2023-07-23] MEDS: Mirtazapine 15 MG TAB PO (21:14)
[2023-07-23] MEDS: Donepezil 5 MG TAB PO (21:14)
[2023-07-24] MEDS: Levothyroxine 100 MCG TAB PO (05:41)
[2023-07-24] MEDS: buPROPion-XL 150 MG TABCR PO (07:54)
[2023-07-24] MEDS: Polyethylene Glycol 3350 17 GM PACKET PO (07:54)
[2023-07-24] MEDS: Cyanocobalamin 500 MCG TAB 1000 MCG PO (07:54)
[2023-07-24] MEDS: Docusate Sodium 100 MG CAP PO ×3 (07:54→19:22)
[2023-07-24] MEDS: QUEtiapine 25 MG TAB 12.5 MG PO (07:55)
--- NOTE | 2023-07-24 10:26 | PDOC.CMPRO ---
Date of service: 07/24/23 Time of Service: 10:26 Care Management Progress Note Progress Note Text Progress Note Text: SNF referrals sent to:
--- NOTE | 2023-07-24 11:04 | NUR.NOTE ---
Nursing Note: pt is refusing physical assessment, 3 attempts made by this nurse and an attempt made by another nurse, no success
[2023-07-24] MEDS: QUEtiapine 25 MG TAB PO (18:28)
[2023-07-24] MEDS: Melatonin 3 MG TAB 9 MG PO (19:22)
[2023-07-24] MEDS: Tamsulosin 0.4 MG CAPCR PO (21:11)
[2023-07-24] MEDS: Mirtazapine 15 MG TAB PO (21:11)
[2023-07-24] MEDS: Donepezil 5 MG TAB PO (21:11)
[2023-07-25] MEDS: Docusate Sodium 100 MG CAP PO ×3 (07:43→21:35)
[2023-07-25] MEDS: QUEtiapine 25 MG TAB 12.5 MG PO (07:43)
[2023-07-25] MEDS: Polyethylene Glycol 3350 17 GM PACKET PO (07:43)
[2023-07-25] MEDS: buPROPion-XL 150 MG TABCR PO (07:44)
[2023-07-25] MEDS: Cyanocobalamin 500 MCG TAB 1000 MCG PO (07:44)
[2023-07-25] MEDS: Levothyroxine 100 MCG TAB PO (07:44)
[2023-07-25] MEDS: QUEtiapine 25 MG TAB PO (17:15)
[2023-07-25] MEDS: Mirtazapine 15 MG TAB PO (21:35)
[2023-07-25] MEDS: Donepezil 5 MG TAB PO (21:35)
[2023-07-25] MEDS: Tamsulosin 0.4 MG CAPCR PO (21:35)
[2023-07-26] MEDS: Levothyroxine 100 MCG TAB PO (07:54)
[2023-07-26] MEDS: buPROPion-XL 150 MG TABCR PO (07:55)
[2023-07-26] MEDS: Polyethylene Glycol 3350 17 GM PACKET PO (07:55)
[2023-07-26] MEDS: Cyanocobalamin 500 MCG TAB 1000 MCG PO (07:56)
[2023-07-26] MEDS: Docusate Sodium 100 MG CAP PO ×2 (07:56→21:15)
[2023-07-26] MEDS: QUEtiapine 25 MG TAB 12.5 MG PO (07:57)
[2023-07-26] MEDS: QUEtiapine 25 MG TAB PO (18:55)
[2023-07-26 21:00] VITALS: BP 143/89; PULSE 84; RESP 16; TEMP 37; O2SAT 98
[2023-07-26] MEDS: Tamsulosin 0.4 MG CAPCR PO (21:15)
[2023-07-26] MEDS: Mirtazapine 15 MG TAB PO (21:15)
[2023-07-26] MEDS: Donepezil 5 MG TAB PO (21:15)
[2023-07-27] MEDS: Levothyroxine 100 MCG TAB PO (05:32)
[2023-07-27 07:56] VITALS: BP 155/88; PULSE 73; RESP 17; TEMP 37.1; O2SAT 100
[2023-07-27] MEDS: QUEtiapine 25 MG TAB 12.5 MG PO (08:36)
[2023-07-27] MEDS: Polyethylene Glycol 3350 17 GM PACKET PO (08:36)
[2023-07-27] MEDS: buPROPion-XL 150 MG TABCR PO (08:36)
[2023-07-27] MEDS: Cyanocobalamin 500 MCG TAB 1000 MCG PO (08:36)
[2023-07-27] MEDS: Docusate Sodium 100 MG CAP PO ×2 (08:36→14:10)
[2023-07-27] MEDS: QUEtiapine 25 MG TAB PO (18:06)
[2023-07-27] MEDS: Donepezil 5 MG TAB PO (21:17)
[2023-07-27] MEDS: Mirtazapine 15 MG TAB PO (21:17)
[2023-07-27] MEDS: Melatonin 3 MG TAB 9 MG PO (21:17)
[2023-07-27] MEDS: Acetaminophen 325 MG TAB PO (21:17)
[2023-07-27] MEDS: Tamsulosin 0.4 MG CAPCR PO (21:17)
[2023-07-28] MEDS: Cyanocobalamin 500 MCG TAB 1000 MCG PO (09:16)
[2023-07-28] MEDS: buPROPion-XL 150 MG TABCR PO (09:16)
[2023-07-28] MEDS: Docusate Sodium 100 MG CAP PO ×2 (09:16→21:03)
[2023-07-28] MEDS: Polyethylene Glycol 3350 17 GM PACKET PO (09:16)
[2023-07-28] MEDS: Levothyroxine 100 MCG TAB PO (09:16)
[2023-07-28] MEDS: QUEtiapine 25 MG TAB 12.5 MG PO (09:17)
--- NOTE | 2023-07-28 14:24 | PDOC.CMPRO ---
Care Management Progress Note Progress Note Text Progress Note Text: ?S/O: Aida remains at [facility] in SWB2 status. Per nursing, she is appropriate in interaction although she often defers her daily nursing assessment. She is quiet and CM often visualizes her ambulating in her room or standing in her doorway watching interactions outside her room. [place] [facility] med[facility] has been approved. SNF referrals are sent, [facility] is reviewing her for buttermaker placement. ?CM updated patients son Willian today. CM will continue to support patient and her discharge planning considerations. ? ? A: Aida is a 63 year old female admitted to [facility] on 06/06/23 in SWB1 for dementia, deconditioning. P: Aida remains in SWB 2 while awaiting [place] [facility]. LTM has been approved. SNF referrals are pending.?[facility] is reviewing. Conor, her son, is also her DPOA and supports her decision making.? Transportation to be determined by disposition. CM will continue to follow.
[2023-07-28 16:57] VITALS: BP 108/66; PULSE 68; RESP 14; TEMP 36.5; O2SAT 100
[2023-07-28] MEDS: QUEtiapine 25 MG TAB PO (17:45)
[2023-07-28] MEDS: Acetaminophen 325 MG TAB PO (21:02)
[2023-07-28] MEDS: Mirtazapine 15 MG TAB PO (21:03)
[2023-07-28] MEDS: Melatonin 3 MG TAB 9 MG PO (21:03)
[2023-07-28] MEDS: Donepezil 5 MG TAB PO (21:04)
[2023-07-28] MEDS: Tamsulosin 0.4 MG CAPCR PO (21:04)
[2023-07-29] MEDS: Docusate Sodium 100 MG CAP PO ×3 (07:33→20:34)
[2023-07-29] MEDS: Levothyroxine 100 MCG TAB PO (07:33)
[2023-07-29] MEDS: Cyanocobalamin 500 MCG TAB 1000 MCG PO (07:33)
[2023-07-29] MEDS: QUEtiapine 25 MG TAB 12.5 MG PO (07:33)
[2023-07-29] MEDS: buPROPion-XL 150 MG TABCR PO (07:34)
[2023-07-29] MEDS: Polyethylene Glycol 3350 17 GM PACKET PO (07:34)
--- NOTE | 2023-07-29 15:43 | PDOC.CMACT ---
Date of service: 07/29/23 Time of Service: 15:43 Care Management Activity Note Activity Note Text Activity Note Text: Aida remains pleasant in interactions with staff.? Aida enjoys quietly ambulating in her room, looking out her window and playing with the keypad to the desk top in her room. . She is often visualized standing in her doorway watching activity outside her room. She colors and visits with staff. RIVAS offered her playing cards and a busy blanket which she declined. She established a routine of taking her shoes off before entering her room, by choice. RIVAS continues to support life enrichment for Aida during her prolonged hospitalization. RIVAS will follow.
[2023-07-29] MEDS: QUEtiapine 25 MG TAB PO (17:47)
[2023-07-29] MEDS: Mirtazapine 15 MG TAB PO (20:34)
[2023-07-29] MEDS: Donepezil 5 MG TAB PO (20:35)
[2023-07-29] MEDS: Tamsulosin 0.4 MG CAPCR PO (20:35)
[2023-07-29 20:53] VITALS: BP 112/68; PULSE 81; RESP 16; TEMP 36.1; O2SAT 98
[2023-07-30] MEDS: Levothyroxine 100 MCG TAB PO (05:30)
[2023-07-30] MEDS: QUEtiapine 25 MG TAB 12.5 MG PO (05:30)
--- NOTE | 2023-07-30 06:43 | NUR.NOTE ---
Pt was awake most of the night, ambulating to the nurse's station and back to bed. No agitation or aggression. Order received and given to give the am dose of seroquel early . Pt resting in bed at this time.(530). Nursing Note:
[2023-07-30] MEDS: Polyethylene Glycol 3350 17 GM PACKET PO (07:41)
[2023-07-30] MEDS: buPROPion-XL 150 MG TABCR PO (07:42)
[2023-07-30] MEDS: Cyanocobalamin 500 MCG TAB 1000 MCG PO (07:42)
[2023-07-30] MEDS: Docusate Sodium 100 MG CAP PO (07:42)
[2023-07-30 09:14] VITALS: BP 147/80; PULSE 89; RESP 16; TEMP 36.7; O2SAT 100
[2023-07-30 09:18] LABS: COVID-19 PCR Negative (Negative)
[2023-07-30 09:33] LABS: Source Nasal/Nares
--- NOTE | 2023-07-30 09:54 | W.PM.DS.N ---
Date of service: 07/30/23 Time of Service: 09:54 DS: Diagnosis Discharge Diagnosis (1) Alzheimer's dementia with behavioral disturbance: Status: Chronic (2) Hypothyroidism: Discharge Plan Disposition [facility] Disposition[facility]) Condition: Fair Discharge Details Reason For Visit: Dementia,Deconditioning,Gait Instability,Loss ADL Admit Date/Time: 06/06/23 15:31 Admit Provider: Dale Edwards Attending Provider: Dale Edwards Primary Care Provider: Wanda Orosco Hospital Course Hospital Course: This is a 63 yr old female patient with advanced Alzheimer's dementia, GERD, HLD, hypothyroidism on replacement who resides at the [facility] and was sent in to the [facility] ED on 06/05/2023 for evaluation of confusion and increased agression, combativeness. Patient reportedly was disturbing staff and other residents with her behavior. Workup in the ED revealed her to be mildly hypercalcemic (Calcium level of 10.5), rest of her electrolytes and BUN and creatinine were normal. UA w/ a few WBC but no bacteria. She was given iv fluids, a dose of fosfomycin for presumptive UTI and admitted to the hospital on observation status. [facility] refused to allow her to return. Physical therapy was consulted out of concern for general weakness, increased risk for falls. She was found to have no focal paresis, but has general weakness, cognitive deficits which impair her judgment necessitating frequent cueing and close supervision during walks. She was deemed to benefit from continued P.T. and placement to a SNF for supervisor intermediates care has been recommended. Last TSH 07/16 was 2.49. She has been cooperative, takes her medication and has been eating meals. Her medications were adjusted and she is stable on current dosing. Bupropion and levothyroxine doses were decreased. She has improved with the addition of ramelteon, guetiapine and mirtazapine. COLST done on the telephone with Conor Khan, witnessed by Bita Cruz. Patient is being discharged with stable vital signs and is calm and not resisting transfer. Home Meds and New Rx's Prescriptions: New quetiapine 25 mg Tablet 25 mg PO DAILY@1800 Qty: 30 0RF quetiapine 25 mg Tablet 12.5 mg PO DAILY Qty: 30 0RF docusate sodium [Colace] 100 mg Capsule 100 mg PO TID Qty: 0 0RF mirtazapine 15 mg Tablet 15 mg PO HS Qty: 0 0RF bupropion HCl 150 mg Tablet Extended Release 24 Hr 150 mg PO QAM Qty: 0 0RF ramelteon 8 mg Tablet 8 mg PO HS Qty: 30 0RF melatonin 3 mg Tablet 9 mg PO HS PRN PRN (Reason: Sleep) Qty: 0 0RF levothyroxine 100 mcg Tablet 100 mcg PO DAILY@0600 Qty: 0 0RF Continued donepezil [Aricept] 5 mg tablet 5 mg PO QHS cyanocobalamin (vitamin B-12) 1,000 mcg capsule 1,000 mcg PO DAILY cholecalciferol (vitamin D3) 25 mcg (1,000 unit) capsule 25 mcg PO DAILY Discontinued levothyroxine [Synthroid] 125 mcg tablet 125 mcg PO DAILY Hold Instructions: Resume on 06/08/23. reduce dose to 100 mcg daily thereafter bupropion HCl 75 mg tablet 75 mg PO DAILY bupropion HCl [Wellbutrin XL] 300 mg tablet extended release 24 hr 300 mg PO QAM Discharge Instructions Referrals: Wanda Orosco [Primary Care Provider] - (Recheck TSH in 6 weeks; Levothyroxine decreased to 100 mcg daily from 125 mcg daily) Activity:: Activity as Tolerated Equipment/Supplies:: No Equipment Needed Diet:: As Tolerated DS: Summary Time Spent with Patient providing and/or coordinating discharge services: Greater than 30 minutes Status at Discharge Functional status at discharge: independent ambulation Overall status at discharge: patient is back to baseline Mental Status: mental status grossly normal (Alzheimer's dementia - at baseline) Speech and Movement: speech and movement normal Mood: labile mood Affect: indifferent Exam Narrative Exam Narrative: General she appears comfortable and is in no acute distress, walking around the room, some eye contact, flat affect HEENT pupils are equal round and reactive to light, no conjunctival pallor, no scleral icterus posterior pharynx clear with no erythema or exudate Neck supple, no lymphadenopathy or thyromegaly, carotid pulses normal and symmetric with no bruits Chest normal breath sounds with no crackles or wheezes Heart rhythm is regular, no gallop, no JVD, no murmur Abdomen soft, nontender, bowel sounds normal, no organomegaly or masses Skin no rash, normal turgor Extremeties: no edema, normal gait Neurologic no tremor, hyperreflexic both upper extremities with no focal motor or sensory deficits Psych Mental Status: mental status grossly normal (Alzheimer's dementia - at baseline) Speech and Movement: speech and movement normal Mood: labile mood Affect: indifferent DS: Data Vitals/I&O Vitals and I&O: Vital Signs Temperature 36.7 C 07/30/23 09:14 Temperature Source Temporal Artery Scan 07/30/23 09:14 Pulse 89 07/30/23 09:14 Pulse Rhythm Regular 07/29/23 10:56 Respiratory Rate 16 07/30/23 09:14 Respiratory Effort Normal 07/29/23 10:56 Respiratory Depth Normal 07/29/23 10:56 Respiratory Pattern Normal 07/29/23 10:56 Blood Pressure 147/80 H 07/30/23 09:14 Pulse Oximetry 100 07/30/23 09:14 Oxygen Delivery Method Room Air 07/30/23 09:14 Oxygen Flow Rate 0 07/30/23 09:14 Pain Level 0 07/30/23 09:14 Comment BP called over radio 07/30/23 09:14 Intake & Output 07/29/23 07/29/23 07/30/23 11:59 23:59 11:59 Intake Total 400 / 760 360 / 760 450 / 450 Balance 400 / 760 360 / 760 450 / 450 Intake: Oral 400 / 760 360 / 760 450 / 450 Other: Urine Color Yellow Yellow Yellow Urine Appearance Clear Clear Clear Urine Odor Normal Normal Normal Comment unable to assess Voiding Methods Toilet Data Completed and Pending Labs on day of discharge: Labs from last 24 hours 07/30/23 08:30 COVID-19 Source Nasal/Nares SARS-CoV-2 (PCR) Negative PFSH All Active Problems (Updated 07/19/23 @ 15:27 by Patricia Dillard NP) Hyponatremia (Acute) Anxiety (Chronic) Dementia with behavioral disturbance (Acute) Frontal lobe dementia (Acute) Discharge planning issues (Acute) Palliative care encounter (Acute) Alzheimer's dementia with behavioral disturbance (Chronic) Elevated serum free T4 level (Acute) Medical History Alzheimer's dementia CKD (chronic kidney disease), stage III Elevated blood pressure reading GERD (gastroesophageal reflux disease) History of depression History of prediabetes Hyperlipidemia Hypothyroidism Leukocytosis Microcytosis Other abnormal tumor markers Sleep apnea Urinary incontinence, mixed Vitamin D deficiency Surgical History H/O total hysterectomy H/O tubal ligation History of cholecystectomy Hx of removal of cyst Social History Smoking/Tobacco Use Status: Never Smoking risk assessment performed?: Yes Alcohol Intake: current Housing: other Do you feel safe at home: Yes Do you feel safe in your relationship?: Yes Time Spent with Patient Time Spent with Patient: 70-84 minutes4 Time was spent: preparing to see the patient(eg.review tests), ordering medications,tests, procedures, referring, communicating with other health childcare worker, indepentently interpreting results, counseling the patient and care coordination
--- NOTE | 2023-07-30 10:42 | CMDISCH_ITS ---
Date of service: 07/30/23 Time of Service: 10:42 LACE Index Scoring Tool Questions: Length of Stay (in days): 1 Was the patient admitted via the E.D.?: Yes Comorbidities: Dementia and Liver or Renal Disease E.D. Visits: 0 Answers: Total Score: 9 Risk of Readmission: Low Risk Care Management Discharge Plan Reason for Hospitalization: Alzheimer's Dementia Discharge Plan: Aida monzon discharge to [facility] via [facility] [employer], coordinated by [facility]. ROSY completed, and faxed with discharge paperwork to accepting facility, discharge documentation reviewed with son, Conor. Patient/Family Education Needs: Review of discharge instructions with Conor, agent and son. Services Needed at Discharge: [facility] ([facility] [employer] [facility])
== END 2023-07-30 12:50 | disposition skilled nursing facility (03) | DRG 57 ==
PROVIDERS: Family Medicine; Nurse Practitioner Acute Care; Nurse Practitioner Family; Admitting Provider Internal Medicine; PCP Nurse Practitioner Family; Visit Provider Internal Medicine
DX: G30.9 Alzheimer's disease, unspecified (principal); N39.0 Urinary tract infection, site not specified; E87.1 Hypo-osmolality and hyponatremia; F02.C18 Dementia in other diseases classified elsewhere, severe, with other behavioral disturbance; R79.89 Other specified abnormal findings of blood chemistry; E03.9 Hypothyroidism, unspecified; E83.52 Hypercalcemia; N18.30 Chronic kidney disease, stage 3 unspecified; K21.9 Gastro-esophageal reflux disease without esophagitis; E78.5 Hyperlipidemia, unspecified; Z51.5 Encounter for palliative care; G31.09 Other frontotemporal neurocognitive disorder; F41.9 Anxiety disorder, unspecified; R53.1 Weakness; F32.A Depression, unspecified; R73.03 Prediabetes; G47.30 Sleep apnea, unspecified; N39.46 Mixed incontinence
CPT/HCPCS: 36415; 80048; 80053; 82306; 87635; 94640; 97110; 97116; 97162; 97163; 99305; 99309; 99316; 81003; 81015; 82607; 82652; 83735; 84443; 85025; 87086; 94664; 94760; 99232; 99308; J0780; J1885; J7620